=== PATIENT | male | born 1955 | race Hispanic/Latino ===

== ENCOUNTER → 2022-12-30 | Outpatient (CLI) | payer MEDICARE | END | disposition home or self-care (01) | LOC: RAH 12-29 14:14 | DX: M25.551 Pain in right hip (principal) | CPT/HCPCS: 73502 ==

== ENCOUNTER 2023-01-08 10:18 | Emergency (ER) | payer MEDICARE ==
[~2023-01-08] VITALS: Ht 172.7 cm; Wt 97.1 kg
[2023-01-08 10:22] VITALS: BP 149/70
[2023-01-08 10:52] LABS: BASOPHILS % (AUTO) 0.4 % (0.0-5.0); EOSINOPHILS % (AUTO) 5.3 % (0.0-8.0); HEMATOCRIT 39.8 % (42-54); LYMPHOCYTES % (AUTO) 12.8 % (21.0-51.0); MEAN CORPUSCULAR HGB CONC 33.9 g/dL (32.0-36.0); MEAN CORPUSCULAR VOLUME 82.4 fL (79-99); MONOCYTES % (AUTO) 6.6 % (3.0-13.0); NEUTROPHILS % (AUTO) 74.6 % (40.0-77.0); PLATELET COUNT (AUTO) 182 K/uL (130-400); RED BLOOD CELL COUNT(AUTO) 4.83 MIL/uL (4.50-6.20); WHITE BLOOD COUNT (AUTO) 9.9 K/uL (4.8-10.8)
[2023-01-08 11:09] LABS: ALBUMIN 3.9 g/dL (3.5-5.0); CREATININE 1.3 mg/dL (0.5-1.5); POTASSIUM 3.7 mmol/L (3.5-5.1)
[2023-01-08 11:55] LABS: B-TYPE NATRIURETIC PEPTIDE 36 pg/mL (0-100)
[2023-01-08] MEDS ORDERED: ACET-66 PO (12:35)
== END 2023-01-08 15:16 | disposition home or self-care (01) ==
LOC: EDH 10:18
DX: M17.0 Bilateral primary osteoarthritis of knee (principal); L30.9 Dermatitis, unspecified; I10 Essential (primary) hypertension; Z95.1 Presence of aortocoronary bypass graft; Z88.8 Allergy status to other drugs, medicaments and biological substances
CPT/HCPCS: 36415; 80053; 83880; 84484; 85025; 93005

== ENCOUNTER 2023-06-28 12:01 | Emergency (ER) | payer MEDICARE ==
[~2023-06-28] VITALS: Ht 172.7 cm; Wt 94.3 kg
[~2023-06-28 12:01] MED LIST: ACET-66 PO; AEC81 PO; AMLO10TA4 PO; ATOR40TA69 PO; BUSP15 PO; CARV12.580 PO; CHLO25TA3 PO; CLOP-31 PO; LAMO300T2 PO; LISI40TA9 PO; PALI819S IM; STAL150 PO; TAMS-1 PO
[2023-06-28 12:34] LABS: BASOPHILS # (AUTO) 0.05 K/uL (0.00-0.20); BASOPHILS % (AUTO) 0.6 % (0.0-5.0); EOSINOPHILS # (AUTO) 0.76 K/uL (0.00-0.70); EOSINOPHILS % (AUTO) 8.6 % (0.0-8.0); HEMATOCRIT 42.3 % (42-54); IMMATURE GRANULOCYTE ABSOLUTE 0.05 K/uL (0-1); LYMPHOCYTES # (AUTO) 1.3 K/uL (1.0-4.8); LYMPHOCYTES % (AUTO) 14.9 % (21.0-51.0); MEAN CORPUSCULAR HEMOGLOBIN 30.5 pg (27.0-33.0); MEAN CORPUSCULAR HGB CONC 35.5 g/dL (32.0-36.0); MEAN CORPUSCULAR VOLUME 86.2 fL (79-99); MONOCYTES # (AUTO) 0.8 K/uL (0.1-1.0); MONOCYTES % (AUTO) 8.9 % (3.0-13.0); NEUTROPHILS # (AUTO) 5.9 K/uL (1.8-7.7); NEUTROPHILS % (AUTO) 66.4 % (40.0-77.0); PLATELET COUNT (AUTO) 193 K/uL (130-400); RED BLOOD CELL COUNT(AUTO) 4.91 MIL/uL (4.50-6.20); RED CELL DISTRIBUTION WIDTH 12.5 % (11.0-15.5); WHITE BLOOD COUNT (AUTO) 8.8 K/uL (4.8-10.8)
[2023-06-28 12:43] LABS: CREATININE 1.2 mg/dL (0.5-1.5); POTASSIUM 3.5 mmol/L (3.5-5.1)
[2023-06-28 12:54] LABS: ALBUMIN 4.3 g/dL (3.5-5.0); BILIRUBIN,TOTAL 0.3 mg/dL (0.2-1.0); TOTAL PROTEIN, SERUM 7.6 g/dL (6.0-8.3)
[2023-06-28] MEDS ORDERED: NITROGLYCERIN 0.4 MG SL TAB SL PRN (13:00)
[2023-06-28] MEDS ORDERED: ASPIRIN 325MG TAB PO ONE (13:00)
[2023-06-28 13:06] LABS: B-TYPE NATRIURETIC PEPTIDE 57 pg/mL (0-100)
[2023-06-28 16:34] VITALS: BP 132/66; PULSE 66; RESP 16; O2SAT 98
== END 2023-06-28 17:21 | disposition home or self-care (01) ==
LOC: EDH 12:01
DX: I20.8 Other forms of angina pectoris (principal); I10 Essential (primary) hypertension; E11.9 Type 2 diabetes mellitus without complications; Z88.8 Allergy status to other drugs, medicaments and biological substances; Z79.899 Other long term (current) drug therapy; Z60.2 Problems related to living alone
CPT/HCPCS: 36415; 71045; 80053; 82550; 83874; 83880; 84484; 85025; 93005

== ENCOUNTER 2023-07-21 19:20 | Emergency (ER) | payer OTHER, MEDICARE ==
[~2023-07-21] VITALS: Ht 172.7 cm; Wt 95.7 kg
[2023-07-21] MEDS ORDERED: ACETAMINOPHEN 500 MG TABLET PO ONE (22:30)
[2023-07-21 23:23] LABS: HEMATOCRIT 40.7 % (42-54); MEAN CORPUSCULAR HEMOGLOBIN 30.5 pg (27.0-33.0); MEAN CORPUSCULAR HGB CONC 34.6 g/dL (32.0-36.0); MEAN CORPUSCULAR VOLUME 87.9 fL (79-99); RED BLOOD CELL COUNT(AUTO) 4.63 MIL/uL (4.50-6.20); RED CELL DISTRIBUTION WIDTH 12.6 % (11.0-15.5); WHITE BLOOD COUNT (AUTO) 10.7 K/uL (4.8-10.8)
[2023-07-21 23:36] LABS: CREATININE 1.2 mg/dL (0.5-1.5); POTASSIUM 3.6 mmol/L (3.5-5.1)
[2023-07-22 05:19] VITALS: BP 126/62; PULSE 80; RESP 18; O2SAT 100
== END 2023-07-22 05:20 | disposition home or self-care (01) ==
LOC: EDH 19:20
DX: M79.661 Pain in right lower leg (principal); R42 Dizziness and giddiness; R51.9 Headache, unspecified; H53.8 Other visual disturbances; I48.91 Unspecified atrial fibrillation; E11.9 Type 2 diabetes mellitus without complications; E78.00 Pure hypercholesterolemia, unspecified; I10 Essential (primary) hypertension; F17.200 Nicotine dependence, unspecified, uncomplicated; Z79.02 Long term (current) use of antithrombotics/antiplatelets; Z79.82 Long term (current) use of aspirin; Z79.899 Other long term (current) drug therapy; Z95.5 Presence of coronary angioplasty implant and graft
CPT/HCPCS: 36415; 80048; 82550; 85027; 85378; 93005; 93971

== ENCOUNTER 2023-09-25 14:19 | Emergency (ER) | payer MEDICARE ==
[~2023-09-25] VITALS: Ht 172.7 cm; Wt 97.5 kg
[2023-09-25 14:52] LABS: BASOPHILS # (AUTO) 0.03 K/uL (0.00-0.20); BASOPHILS % (AUTO) 0.3 % (0.0-5.0); EOSINOPHILS # (AUTO) 0.68 K/uL (0.00-0.70); EOSINOPHILS % (AUTO) 6.3 % (0.0-8.0); HEMATOCRIT 38.2 % (42-54); IMMATURE GRANULOCYTE ABSOLUTE 0.04 K/uL (0-1); LYMPHOCYTES # (AUTO) 1.6 K/uL (1.0-4.8); LYMPHOCYTES % (AUTO) 14.4 % (21.0-51.0); MEAN CORPUSCULAR HEMOGLOBIN 31.1 pg (27.0-33.0); MEAN CORPUSCULAR HGB CONC 34.3 g/dL (32.0-36.0); MEAN CORPUSCULAR VOLUME 90.7 fL (79-99); MONOCYTES # (AUTO) 1.1 K/uL (0.1-1.0); MONOCYTES % (AUTO) 10.4 % (3.0-13.0); NEUTROPHILS # (AUTO) 7.4 K/uL (1.8-7.7); NEUTROPHILS % (AUTO) 68.2 % (40.0-77.0); PLATELET COUNT (AUTO) 184 K/uL (130-400); RED BLOOD CELL COUNT(AUTO) 4.21 MIL/uL (4.50-6.20); RED CELL DISTRIBUTION WIDTH 13.1 % (11.0-15.5); WHITE BLOOD COUNT (AUTO) 10.9 K/uL (4.8-10.8)
[2023-09-25 15:04] LABS: INR 0.94 (0.85-1.15); PROTHROMBIN TIME 10.9 SEC (9.6-11.6)
[2023-09-25 15:05] LABS: CREATININE 1.2 mg/dL (0.5-1.5); PARTIAL THROMBOPLASTIN TIME 31.6 SEC (26.3-35.5); POTASSIUM 3.6 mmol/L (3.5-5.1)
[2023-09-25 15:14] LABS: ALBUMIN 3.8 g/dL (3.5-5.0); BILIRUBIN,TOTAL 0.4 mg/dL (0.2-1.0); TOTAL PROTEIN, SERUM 6.9 g/dL (6.0-8.3)
[2023-09-25 15:17] LABS: B-TYPE NATRIURETIC PEPTIDE 83 pg/mL (0-100)
[2023-09-25 15:29] VITALS: BP 142/48; PULSE 57; RESP 17; O2SAT 98
== END 2023-09-25 15:48 | disposition home or self-care (01) ==
LOC: EDH 14:19
DX: R07.89 Other chest pain (principal); E11.9 Type 2 diabetes mellitus without complications; E78.00 Pure hypercholesterolemia, unspecified; F17.200 Nicotine dependence, unspecified, uncomplicated; I10 Essential (primary) hypertension; Z79.02 Long term (current) use of antithrombotics/antiplatelets; Z79.82 Long term (current) use of aspirin; Z79.899 Other long term (current) drug therapy; Z95.1 Presence of aortocoronary bypass graft; Z95.5 Presence of coronary angioplasty implant and graft
CPT/HCPCS: 36415; 71045; 80053; 83880; 84484; 85025; 85610; 85730; 93005

== ENCOUNTER → 2023-11-14 | Outpatient (CLI) | payer MEDICARE | END | disposition home or self-care (01) | LOC: SHCH 11:17 | PROVIDERS: ATTEND Internal Medicine | DX: I10 Essential (primary) hypertension (principal) | CPT/HCPCS: 93975 ==

== ENCOUNTER 2024-04-06 18:45 | Emergency (ER) | payer MEDICARE ==
[~2024-04-06] VITALS: Ht 172.7 cm; Wt 96.6 kg
[2024-04-06 19:23] LABS: BASOPHILS # (AUTO) 0.04 K/uL (0.00-0.20); BASOPHILS % (AUTO) 0.5 % (0.0-5.0); EOSINOPHILS # (AUTO) 0.92 K/uL (0.00-0.70); EOSINOPHILS % (AUTO) 10.7 % (0.0-8.0); HEMATOCRIT 38.5 % (42-54); IMMATURE GRANULOCYTE ABSOLUTE 0.03 K/uL (0-1); LYMPHOCYTES # (AUTO) 1.5 K/uL (1.0-4.8); LYMPHOCYTES % (AUTO) 17.4 % (21.0-51.0); MEAN CORPUSCULAR HEMOGLOBIN 28.5 pg (27.0-33.0); MEAN CORPUSCULAR VOLUME 83.7 fL (79-99); MONOCYTES # (AUTO) 1.1 K/uL (0.1-1.0); MONOCYTES % (AUTO) 12.4 % (3.0-13.0); NEUTROPHILS # (AUTO) 5.1 K/uL (1.8-7.7); NEUTROPHILS % (AUTO) 58.7 % (40.0-77.0); PLATELET COUNT (AUTO) 178 K/uL (130-400); RED CELL DISTRIBUTION WIDTH 13.9 % (11.0-15.5); WHITE BLOOD COUNT (AUTO) 8.6 K/uL (4.8-10.8)
[2024-04-06 19:30] LABS: CREATININE 1.2 mg/dL (0.5-1.3); POTASSIUM 3.3 mmol/L (3.5-5.1)
[2024-04-06 20:34] VITALS: BP 115/55; PULSE 78; RESP 18; O2SAT 98
== END 2024-04-06 20:36 | disposition home or self-care (01) ==
LOC: EDH 18:45
DX: R07.89 Other chest pain (principal); E11.9 Type 2 diabetes mellitus without complications; I11.9 Hypertensive heart disease without heart failure; E78.00 Pure hypercholesterolemia, unspecified; F20.9 Schizophrenia, unspecified; F17.200 Nicotine dependence, unspecified, uncomplicated; Z79.02 Long term (current) use of antithrombotics/antiplatelets; Z79.82 Long term (current) use of aspirin; Z79.899 Other long term (current) drug therapy; Z95.1 Presence of aortocoronary bypass graft; Z88.8 Allergy status to other drugs, medicaments and biological substances
CPT/HCPCS: 36415; 71045; 80048; 84484; 85025; 93005

== ENCOUNTER 2024-06-12 09:30 | Emergency (ER) | payer MEDICARE ==
[~2024-06-12] VITALS: Ht 172.7 cm; Wt 97.5 kg
[2024-06-12 10:46] LABS: BASOPHILS # (AUTO) 0.05 K/uL (0.00-0.20); BASOPHILS % (AUTO) 0.3 % (0.0-5.0); EOSINOPHILS # (AUTO) 0.61 K/uL (0.00-0.70); EOSINOPHILS % (AUTO) 3.9 % (0.0-8.0); HEMATOCRIT 39.2 % (42-54); IMMATURE GRANULOCYTE ABSOLUTE 0.08 K/uL (0-1); LYMPHOCYTES # (AUTO) 1.1 K/uL (1.0-4.8); LYMPHOCYTES % (AUTO) 6.9 % (21.0-51.0); MEAN CORPUSCULAR HEMOGLOBIN 29.7 pg (27.0-33.0); MEAN CORPUSCULAR HGB CONC 34.2 g/dL (32.0-36.0); MEAN CORPUSCULAR VOLUME 86.9 fL (79-99); MONOCYTES # (AUTO) 1.2 K/uL (0.1-1.0); MONOCYTES % (AUTO) 7.6 % (3.0-13.0); NEUTROPHILS # (AUTO) 12.8 K/uL (1.8-7.7); NEUTROPHILS % (AUTO) 80.8 % (40.0-77.0); PLATELET COUNT (AUTO) 171 K/uL (130-400); RED BLOOD CELL COUNT(AUTO) 4.51 MIL/uL (4.50-6.20); RED CELL DISTRIBUTION WIDTH 13.7 % (11.0-15.5); WHITE BLOOD COUNT (AUTO) 15.8 K/uL (4.8-10.8)
[2024-06-12 10:53] LABS: POTASSIUM 3.7 mmol/L (3.5-5.1)
[2024-06-12 10:56] LABS: URIC ACID 8.6 mg/dL (2.6-7.2)
[2024-06-12] MEDS: KETOROLAC 60 MG VIAL (30MG/ML) IM ONE (11:55)
[2024-06-12] MEDS ORDERED: COLC0.6C3 PO (12:12)
[2024-06-12 12:20] VITALS: BP 154/60; PULSE 96; RESP 15; O2SAT 100
[2024-06-12] MEDS: dexaMETHasone SOD PHOSPHATE 10MG/ML 1ML VIAL ONE (12:28)
[2024-06-12] MEDS: dexaMETHasone SOD PHOSPHATE 4 MG/ML 1ML VIAL IV ONE (12:38)
== END 2024-06-12 12:39 | disposition home or self-care (01) ==
LOC: EDH 09:30
DX: M10.9 Gout, unspecified (principal); D72.829 Elevated white blood cell count, unspecified; I48.91 Unspecified atrial fibrillation; E11.9 Type 2 diabetes mellitus without complications; E78.00 Pure hypercholesterolemia, unspecified; F20.9 Schizophrenia, unspecified; G20.A1 Parkinson's disease without dyskinesia, without mention of fluctuations; I10 Essential (primary) hypertension; F17.200 Nicotine dependence, unspecified, uncomplicated; Z79.02 Long term (current) use of antithrombotics/antiplatelets; Z79.82 Long term (current) use of aspirin; Z79.899 Other long term (current) drug therapy; Z95.1 Presence of aortocoronary bypass graft; Z88.8 Allergy status to other drugs, medicaments and biological substances
CPT/HCPCS: 99284; 96374; 84550; 80048; 85025; 87040; 83605; 36415; 73630; 96372; J1100 ×2; J1885

== ENCOUNTER 2024-09-16 09:57 | Emergency (ER) | payer MEDICARE ==
[~2024-09-16] VITALS: Ht 172.7 cm; Wt 95.3 kg
[~2024-09-16 09:57] MED LIST changes: +APIX5TAB PO; +COLC0.6C3 PO; +EZET10TA48 PO; +PRAZ2CAP2 PO
--- NOTE | 2024-09-16 10:23 | EKG ---
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
[2024-09-16 10:42] LABS: APPEARANCE,URINE CLEAR (CLEAR); BILIRUBIN,URINE NEGATIVE (NEGATIVE); COLOR,URINE LIGHT-YELLOW (YELLOW); GLUCOSE, URINE (UA) NEGATIVE (NEGATIVE); KETONES,URINE NEGATIVE (NEGATIVE); LEUKOCYTE ESTERASE ,URINE NEGATIVE Leu/uL (NEGATIVE); NITRATE,URINE NEGATIVE (NEGATIVE); PH,URINE 6.5 (5.0-8.0); PROTEIN,URINE NEGATIVE (NEGATIVE); UROBILINOGEN,URINE 0.2 mg/dL (0.2-1.0)
[2024-09-16 10:45] LABS: ADD UA MICROSCOPIC YES
[2024-09-16 10:46] LABS: SQUAMOUS EPITHELIAL CELL,UR RARE /HPF (0-2); WBC,URINE 0-1 /HPF (0-1)
[2024-09-16 11:15] LABS: BASOPHILS # (AUTO) 0.05 K/uL (0.00-0.20); BASOPHILS % (AUTO) 0.4 % (0.0-5.0); EOSINOPHILS # (AUTO) 0.76 K/uL (0.00-0.70); EOSINOPHILS % (AUTO) 5.4 % (0.0-8.0); HEMATOCRIT 42.4 % (42-54); IMMATURE GRANULOCYTE ABSOLUTE 0.05 K/uL (0-1); LYMPHOCYTES # (AUTO) 1.1 K/uL (1.0-4.8); LYMPHOCYTES % (AUTO) 8.2 % (21.0-51.0); MEAN CORPUSCULAR HEMOGLOBIN 29.5 pg (27.0-33.0); MEAN CORPUSCULAR HGB CONC 33.7 g/dL (32.0-36.0); MEAN CORPUSCULAR VOLUME 87.6 fL (79-99); MONOCYTES % (AUTO) 7.2 % (3.0-13.0); NEUTROPHILS % (AUTO) 78.4 % (40.0-77.0); PLATELET COUNT (AUTO) 182 K/uL (130-400); RED BLOOD CELL COUNT(AUTO) 4.84 MIL/uL (4.50-6.20); RED CELL DISTRIBUTION WIDTH 12.8 % (11.0-15.5)
[2024-09-16 11:23] LABS: CREATININE 1.2 mg/dL (0.5-1.3); POTASSIUM 3.3 mmol/L (3.5-5.1)
[2024-09-16 11:27] LABS: ALBUMIN 4.2 g/dL (3.5-5.0); BILIRUBIN,DIRECT 0.1 mg/dL (0.0-0.3); BILIRUBIN,TOTAL 0.5 mg/dL (0.2-1.0); TOTAL PROTEIN, SERUM 7.5 g/dL (6.0-8.3)
[2024-09-16] MEDS ORDERED: IOHEXOL-350 75 ML VIAL IV ONE (11:33)
--- NOTE | 2024-09-16 12:21 | HMCIMG ---
CT ABDOMEN/PELVIS W/CONTRAST REASON: diffuse abd pain constipated x3 days hx of diverticulitis COMPARISON: None. TECHNIQUE: Images are obtained from lung bases to the sepsis pubis following IV contrast, 75 cc Omnipaque 350. FINDINGS: Lung bases are clear. There are no focal liver lesions. There are normal-appearing kidneys.. Spleen and pancreas appear unremarkable. There are multiple stones in the gallbladder. There is no wall thickening or edema. There is marked inflammation in the right lower quadrant. This is epicentered around the terminal ileum at the entrance to the cecum. There are some scattered diverticula in this area but none immediately in the region of the inflammation. The appendix was visualized and appears normal. Findings are consistent with an inflammatory process involving the terminal ileum. There are scattered if it tequila throughout the colon, mild in degree. There is no evidence of diverticulitis. Bowel loops appear otherwise unremarkable. The appendix was visualized and appears normal. There is no evidence of free fluid or intraperitoneal air. There are no focal fluid collections. Aorta and retroperitoneum appear normal as do pelvic soft tissue structures. The anterior abdominal wall is intact. Osseous structures appear unremarkable. IMPRESSION: 1. Moderate to marked focal inflammation surrounding the terminal ileum at its entrance to the cecum, consistent with terminal ileitis. 2. There are a few scattered diverticula in the colon but none immediately adjacent to the inflammation, the appendix is visualized and appears normal. 3. Cholelithiasis without evidence of acute cholecystitis. CT was performed with one or more following dose reduction techniques: automated exposure control, adjustment of the mA and kv according to patient's size, or use of a iterative reconstruction technique.
[2024-09-16] MEDS ORDERED: METR375C2 PO (12:48)
--- NOTE | 2024-09-16 12:49 | ERN ---
General Chief Complaint: Abdominal Pain Stated Complaint: ABDOMINAL PAIN Time Seen by MD: 10:04 Time Seen by Midlevel: 10:04 Source: patient History of Present Illness Initial Comments Patient is a 69-year-old male presenting to the ER for evaluation of periumbilical abdominal pain that started four days ago. She reports multiple small bowel movements over the last couple of days. Denies any blood in stool. Denies any other symptoms at this time. Allergies: Coded Allergies: amiodarone (Unverified Allergy, Unknown, 01/08/23) lorazepam (Unverified Allergy, Unknown, 01/08/23) Home Meds Active Scripts Metronidazole (Flagyl) 375 Mg Capsule, 1 CAP PO BID for 7 Days, #14 CAP 0 Refi lls Prov:ROB PEÑA 09/16/24 Colchicine (Colchicine) 0.6 Mg Capsule, 0.6 MG PO AD, #15 CAP One capsule by mouth every hour until pain is relieved, you reach a maximum of three capsules, or stomach upset. Prov:MEAGHAN MCGOWAN NP 06/12/24 Acetaminophen (Tylenol) 500 Mg Tab, 500 MG PO Q6HPRN PRN for PAIN LEVEL 1 TO 5 for 5 Days, #30 TAB Prov:LILIYA MORENO MD 01/08/23 Reported Medications Prazosin HCl (Prazosin HCl) 2 Mg Capsule, 1 CAP PO HS 07/26/24 Ezetimibe (Ezetimibe) 10 Mg Tablet, 1 TAB PO HS 07/26/24 Apixaban (Eliquis) 5 Mg Tablet, 1 TAB PO BID 07/26/24 Paliperidone Palmitate (Invega Trinza) 819 Mg/2.63 Ml Syringe, 819 MG IM Q3MTH, SYRINGE 02/25/23 Tamsulosin HCl (Flomax) 0.4 Mg Cap.er.24h, 0.4 MG PO DAILY, CAPSULE. 02/25/23 Lamotrigine (Lamotrigine) 300 Mg Tab.er.24, 300 MG PO DAILY 02/25/23 Carbidopa/Levodopa/Entacapone (Stalevo 150) 1 Tab Tab, 2 TAB PO DAILY, TAB 02/25/23 Atorvastatin Calcium (LIPITOR) 40 Mg Tablet, 40 MG PO HS, TAB 02/25/23 Amlodipine Besylate (Norvasc) 10 Mg Tablet, 10 MG PO DAILY, TAB 02/25/23 Lisinopril (Lisinopril) 40 Mg Tablet, 40 MG PO DAILY, TAB 02/25/23 Clopidogrel Bisulfate (Plavix) 75 Mg Tablet, 75 MG PO DAILY, TAB 02/25/23 Carvedilol (Coreg) 12.5 Mg Tablet, 12.5 MG PO BID, TAB 02/25/23 Buspirone HCl (Buspar) 15 Mg Tab, 15 MG PO BID, TAB 02/25/23 Aspirin (ASPIRIN 81 MG ECTAB) 81 Mg Ectab, 81 MG PO DAILY, TAB.EC 02/25/23 Chlorthalidone (Chlorthalidone) 25 Mg Tablet, 25 MG PO DAILY, TAB 02/25/23 Past Medical History Past Medical History: Heart Disease, Hypertension, Schizophrenia Medical History Other: parkinsons, bipolar Past Surgical History: CABG Surgical History Other: CARDAIC STENT X2, BRAIN STENT, Social History Social History: Smokers, Lives alone ROS Dictation CONSTITUTIONAL: Negative except for HPI HEAD/FACE: Negative except for HPI EENT: Negative except for HPI RESPIRATORY: Negative except for HPI GASTROINTESTINAL/ABDOMINAL: Negative except for HPI GENITOURINARY: Negative except for HPI MUSCULOSKELETAL: Negative except for HPI INTEGUMENTARY: Negative except for HPI NEUROLOGICAL/PSYCH: Negative except for HPI HEMATOLOGIC/LYMPHATIC: Negative except for HPI All Systems Negative, Except as noted above. 13 point review of systems assessed and all negative except for above. Physical Exam Physical Exam Dictation Vital Signs reviewed General Appearance: Alert, oriented x 3, no acute distress, well developed, nourished. Head and Face: non-traumatic. Eyes: PERRL, pink conjunctivas, eyelid no trauma, anterior chamber with arcus senilis. Ears: Pinnas intact and no signs of trauma or erythema ear canals clear and no discharge TM no erythema Nose: No discharge, no bleeding. Oropharynx: Mouth normal, tongue pink, pharynx clear,no erythema, tonsils no exudates, no abscesses noted, mucous membrane moist Neck: Supple, non-tender, no thyromegaly, no masses, no JVD, no bruits Breast:Deferred Chest:No tenderness, no crepitus, no paradoxical movement, no retractions Lungs:Clear, well-ventilated, symmetric, no rales, no wheezing, no rhonchi, no stridor, good breath sounds bilaterally Heart: Regular rate, regular rhythm, no murmur, no gallops Vascular: no peripheral edema, Abdomen: Soft, positive bowel sounds, nondistended, no guarding, Diffuse abdominal tenderness, no rebound, no masses no hepatomegaly, no splenomegaly, no Wolfe's sign, no hernias. Rectal: Deferred Genital: Deferred Neurological: Normal speech, motor function intact, sensory function intact Musculoskeletal: Neck nontender, full range of motion, back nontender, full range of motion, Extremities: nontender, full range of motion Skin: Color pink, dry, no turgor, no rash, no lacerations, no abrasions, no contusions. Lymphatic: Deferred Results Laboratory and Microbiology Lab and Micro Result Laboratory Tests Test 09/16/24 10:23 09/16/24 11:00 Urine Color LIGHT-YELLOW (YELLOW) Urine Appearance CLEAR (CLEAR) Urine pH 6.5 (5.0-8.0) Urine Specific [place] 1.004 (1.001-1.031) Urine Protein NEGATIVE mg/dL (NEGATIVE) Urine Glucose (UA) NEGATIVE mg/dL (NEGATIVE) Urine Ketones NEGATIVE mg/dL (NEGATIVE) Urine Occult Blood +- (TRACE) (NEGATIVE) H Urine Nitrate NEGATIVE (NEGATIVE) Urine Bilirubin NEGATIVE mg/dL (NEGATIVE) Urine Urobilinogen 0.2 mg/dL (0.2-1.0) Urine Leukocyte Esterase NEGATIVE Rafita/uL Urine RBC 2-5 /HPF (0-1) H Urine WBC 0-1 /HPF (0-1) Urine Squamous Epithelial Cells RARE /HPF (0-2) Urine Bacteria None /HPF (None Seen) White Blood Count 14.0 K/uL (4.8-10.8) H Red Blood Count 4.84 MIL/uL (4.50-6.20) Hemoglobin 14.3 g/dL (14.0-18.0) Hematocrit 42.4 % (42-54) Mean Corpuscular Volume 87.6 fL (79-99) Mean Corpuscular Hemoglobin 29.5 pg (27.0-33.0) Mean Corpuscular Hemoglobin Concent 33.7 g/dL (32.0-36.0) Red Cell Distribution Width 12.8 % (11.0-15.5) Platelet Count 182 K/uL (130-400) Mean Platelet Volume 10.1 fL (7.5-10.5) Immature Granulocyte % (Auto) 0.4 % (0-1) Neutrophils (%) (Auto) 78.4 % (40.0-77.0) H Lymphocytes (%) (Auto) 8.2 % (21.0-51.0) L Monocytes (%) (Auto) 7.2 % (3.0-13.0) Eosinophils (%) (Auto) 5.4 % (0.0-8.0) Basophils (%) (Auto) 0.4 % (0.0-5.0) Neutrophils # (Auto) 11.0 K/uL (1.8-7.7) H Lymphocytes # (Auto) 1.1 K/uL (1.0-4.8) Monocytes # (Auto) 1.0 K/uL (0.1-1.0) Eosinophils # (Auto) 0.76 K/uL (0.00-0.70) H Basophils # (Auto) 0.05 K/uL (0.00-0.20) Absolute Immature Granulocyte (auto 0.05 K/uL (0-1) Nucleated Red Blood Cells 0.0 % (0.0-0.19) White Cell Morphology Comment See comments Sodium Level 140 mmol/L (136-145) Potassium Level 3.3 mmol/L (3.5-5.1) L Chloride Level 100 mmol/L (101-111) L Carbon Dioxide Level 35 mmol/L (21-32) H Blood Urea Nitrogen 12 mg/dL (7-18) Creatinine 1.2 mg/dL (0.5-1.3) Glomerular Filtration Rate Calc 65 mL/min (>90) Random Glucose 115 mg/dL (70-105) H Total Calcium 10.2 mg/dL (8.5-10.1) H Total Bilirubin 0.5 mg/dL (0.2-1.0) Direct Bilirubin 0.1 mg/dL (0.0-0.3) Aspartate Amino Transf (AST/SGOT) 12 U/L (10-37) Alanine Aminotransferase (ALT/SGPT) 17 U/L (12-78) Alkaline Phosphatase 78 U/L (50-136) Troponin I High Sensitivity 8 ng/L (4-75) Total Protein 7.5 g/dL (6.0-8.3) Albumin 4.2 g/dL (3.5-5.0) Lipase 61 U/L (16-77) Labs Reviewed?: Yes MDM MDM: Differential diagnosis: Small-bowel obstruction, enterocolitis, gastroenteritis There are no social concerns with this patient. Prescription drug management Prescriptions will include: Flagyl Medical management and examination interpretation discussions were had by me with other qualified healthcare professionals as indicated for the patient's care. ED Course Orders Procedure Category Date Status Time Cbc With Differential LAB 09/16/24 Complete 10:09 12 Lead Ekg Tracing- EKG 09/16/24 Complete Technical 10:09 Troponin I High LAB 09/16/24 Complete Sensitivity 10:09 Urinalysis Profile LAB 09/16/24 Complete 10:09 Basic Metabolic Panel LAB 09/16/24 Complete 10:09 Lipase LAB 09/16/24 Complete 10:09 Hepatic Function Panel LAB 09/16/24 Complete 10:09 Ct Abdomen/Pelvis CT 09/16/24 Resulted W/Contrast 10:35 Iohexol (Omnipaque) PHA 09/16/24 Complete 11:33 Ceftriaxone 1g Vial PHA 09/16/24 Complete (Rocephine 1g Inj) 13:00 Current Medications Medications (Trade) Dose Ordered Sig/Edward Route PRN Reason Start Time Stop Time Status Last Admin Dose Admin Ceftriaxone Sodium (ROCEphine 1G INJ) 1 gm ONCE ONCE IVPB 09/16/24 13:00 09/16/24 13:01 DC 09/16/24 12:58 Iohexol (Omnipaque) 75 ml STK-MED ONCE IV 09/16/24 11:33 09/16/24 11:33 DC Vital Signs Date Time Temp Pulse Resp B/P (MAP) Pulse Ox O2 Delivery O2 Flow Rate FiO2 09/16/24 12:55 97.9 61 18 151/73 100 Room Air* 0 21 09/16/24 09:59 97.9 56 18 167/75 99 [address] [address] IMAGING REPORT Signed PATIENT: YONG METCALF MR#: [id number] : 1955 SEX: M AGE: 69 LOCATION: [facility] ORDER [id number] STATUS: REG ER REPORT#: [id number] SERVICE 1035 REASON: diffuse abd pain constipated x3 days hx of diverticulitis ORDERING PHYSICIAN: ROB PEÑA PROCEDURE: ABD PEL W - CT ABDOMEN/PELVIS W/CONTRAST CT ABDOMEN/PELVIS W/CONTRAST REASON: diffuse abd pain constipated x3 days hx of diverticulitis COMPARISON: None. TECHNIQUE: Images are obtained from lung bases to the sepsis pubis following IV contrast, 75 cc Omnipaque 350. FINDINGS: Lung bases are clear. There are no focal liver lesions. There are normal-appearing kidneys.. Spleen and pancreas appear unremarkable. There are multiple stones in the gallbladder. There is no wall thickening or edema. There is marked inflammation in the right lower quadrant. This is epicentered around the terminal ileum at the entrance to the cecum. There are some scattered diverticula in this area but none immediately in the region of the inflammation. The appendix was visualized and appears normal. Findings are consistent with an inflammatory process involving the terminal ileum. There are scattered if it tequila throughout the colon, mild in degree. There is no evidence of diverticulitis. Bowel loops appear otherwise unremarkable. The appendix was visualized and appears normal. There is no evidence of free fluid or intraperitoneal air. There are no focal fluid collections. Aorta and retroperitoneum appear normal as do pelvic soft tissue structures. The anterior abdominal wall is intact. Osseous structures appear unremarkable. IMPRESSION: 1. Moderate to marked focal inflammation surrounding the terminal ileum at its entrance to the cecum, consistent with terminal ileitis. 2. There are a few scattered diverticula in the colon but none immediately adjacent to the inflammation, the appendix is visualized and appears normal. 3. Cholelithiasis without evidence of acute cholecystitis. CT was performed with one or more following dose reduction techniques: automated exposure control, adjustment of the mA and kv according to patient's size, or use of a iterative reconstruction technique. DICTATED BY: SIVA CARTAGENA MD DATE: 09/16/241213 ELECTRONICALLY SIGNED BY: SIVA CARTAGENA MD DATE: 09/16/24 1221 DX & DISP Disposition: Discharge Departure Impression: Primary Impression: Terminal ileitis without complication Condition: Stable Scripts Metronidazole (Flagyl) 375 Mg Capsule 1 CAP PO BID for 7 Days, #14 CAP 0 Refills Prov: ROB PEÑA 09/16/24 Additional Instructions: Your blood work today is stable. Your CT scan of the abdomen and pelvis with contrast reveals terminal ileitis. You were given IV antibiotics in the emergency department. Have given you a prescription for Flagyl for outpatient management. Please follow up with the primary care doctor next Thursday for repeat evaluation. If you develop any rectal bleeding, severe abdominal pain, fever, or worsening symptoms please report to the ER for further evaluation. Return to the ER for any new or worsening symptoms Referrals: EFFIE STRONG MD (PCP) Time of Disposition: 12:47 I have reviewed the case, and I agree with, Diagnosis and Plan I performed the substantive portion of the visit. I have reviewed and personally made and approve the management plan that is documented in the note by myself or the MARTINEZ. I acknowledge for responsibility for the patient's management plan. ROB PEÑA Sep 16, 2024 12:49
[2024-09-16 12:55] VITALS: BP 151/73; PULSE 61; RESP 18; TEMP 97.9; O2SAT 100
[2024-09-16] MEDS: cefTRIAXone 1G VIAL IVPB ONE (12:58)
== END 2024-09-16 13:37 | disposition home or self-care (01) ==
LOC: EDH 09:57
DX: K50.00 Crohn's disease of small intestine without complications (principal); K57.30 Diverticulosis of large intestine without perforation or abscess without bleeding; K80.20 Calculus of gallbladder without cholecystitis without obstruction; G20.A1 Parkinson's disease without dyskinesia, without mention of fluctuations; F20.9 Schizophrenia, unspecified; F17.200 Nicotine dependence, unspecified, uncomplicated; I10 Essential (primary) hypertension; Z79.01 Long term (current) use of anticoagulants; Z79.02 Long term (current) use of antithrombotics/antiplatelets; Z79.82 Long term (current) use of aspirin; Z79.899 Other long term (current) drug therapy; Z95.1 Presence of aortocoronary bypass graft
CPT/HCPCS: 99285; 74177; 96374; 80076; 84484; 80048; 83690; 85025; 81001; 36415; 93005; J0696; Q9967

== ENCOUNTER 2024-10-28 10:37 | Emergency (ER) | payer MEDICARE ==
[~2024-10-28] VITALS: Ht 172.7 cm; Wt 99.8 kg
[~2024-10-28 10:37] MED LIST changes: +METR375C2 PO
[2024-10-28 11:58] LABS: BASOPHILS # (AUTO) 0.07 K/uL (0.00-0.20); BASOPHILS % (AUTO) 0.6 % (0.0-5.0); EOSINOPHILS # (AUTO) 0.88 K/uL (0.00-0.70); EOSINOPHILS % (AUTO) 7.9 % (0.0-8.0); HEMATOCRIT 41.3 % (42-54); IMMATURE GRANULOCYTE ABSOLUTE 0.05 K/uL (0-1); LYMPHOCYTES # (AUTO) 1.3 K/uL (1.0-4.8); LYMPHOCYTES % (AUTO) 11.8 % (21.0-51.0); MEAN CORPUSCULAR HEMOGLOBIN 29.8 pg (27.0-33.0); MEAN CORPUSCULAR HGB CONC 33.2 g/dL (32.0-36.0); MEAN CORPUSCULAR VOLUME 89.8 fL (79-99); MONOCYTES # (AUTO) 0.9 K/uL (0.1-1.0); MONOCYTES % (AUTO) 8.4 % (3.0-13.0); NEUTROPHILS # (AUTO) 7.9 K/uL (1.8-7.7); NEUTROPHILS % (AUTO) 70.8 % (40.0-77.0); PLATELET COUNT (AUTO) 187 K/uL (130-400); RED CELL DISTRIBUTION WIDTH 13.6 % (11.0-15.5); WHITE BLOOD COUNT (AUTO) 11.1 K/uL (4.8-10.8)
--- NOTE | 2024-10-28 11:59 | HMCIMG ---
CHEST 1VW HISTORY: Chest pain COMPARISON: 07/26/2024 FINDINGS: A frontal projection of the chest was obtained. No acute pulmonary infiltrates is seen. Poststernotomy changes are seen. The heart is enlarged. Degenerative changes of the thoracolumbar spine are present. Prominent interstitial markings are seen. No evidence of aortic calcification is seen. IMPRESSION: 1. No acute pulmonary infiltrate is seen.
[2024-10-28 12:14] LABS: INR 1.02 (0.85-1.15); PROTHROMBIN TIME 11.4 SEC (9.6-11.6)
--- NOTE | 2024-10-28 12:20 | EKG ---
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 : 1955 Requested By: LILIYA MORENO Order Number: [id number] Reading MD: Clemente Melo Measurements Intervals [place] Rate: 54 P: 195 [place]: 70 QRS: 100 QRSD: 127 T: 5 QT: 455 QTc: 414 Interpretive Statements Sinus rhythm Ventricular premature complex Nonspecific intraventricular conduction delay Probable inferior infarct, age indeterminate Compared to ECG 09/16/2024 10:15:54 Ventricular premature complex(es) now present Myocardial infarct finding now present Electronically Signed On 10-31-2024 21:26:08 [employer] TER[employer]AL PLANT OPERATOR by Clemente Melo Please click the below link to view image of tracing.
[2024-10-28 12:21] LABS: B-TYPE NATRIURETIC PEPTIDE 27 pg/mL (0-100)
[2024-10-28 12:34] LABS: CREATININE 1.2 mg/dL (0.5-1.3); POTASSIUM 3.9 mmol/L (3.5-5.1)
--- NOTE | 2024-10-28 13:30 | ERN ---
General Chief Complaint: Headache Stated Complaint: HEADACHE Time Seen by MD: 10:40 Source: patient History of Present Illness Initial Comments PATIENT IS A 69-YEAR-OLD MALE COMING IN TO BE EVALUATED FOR HEADACHE. PATIENT STATES THAT THE HEADACHE IS ON THE LEFT SIDE OF THE HEAD RADIATING DOWN THE LEFT NECK REGION. HE STATES THAT THE PAIN HAS BEEN THERE FOR A COUPLE OF DAYS AND HAS BEEN PROGRESSIVELY GETTING WORSE. Allergies: Coded Allergies: amiodarone (Unverified Allergy, Unknown, 01/08/23) lorazepam (Unverified Allergy, Unknown, 01/08/23) Home Meds Active Scripts Metronidazole (Flagyl) 375 Mg Capsule, 1 CAP PO BID for 7 Days, #14 CAP 0 Refills Prov:ROB PEÑA 09/16/24 Colchicine (Colchicine) 0.6 Mg Capsule, 0.6 MG PO AD, #15 CAP One capsule by mouth every hour until pain is relieved, you reach a maximum of three capsules, or stomach upset. Prov:MEAGHAN MCGOWAN NP 06/12/24 Acetaminophen (Tylenol) 500 Mg Tab, 500 MG PO Q6HPRN PRN for PAIN LEVEL 1 TO 5 for 5 Days, #30 TAB Prov:LILIYA MORENO MD 01/08/23 Reported Medications Prazosin HCl (Prazosin HCl) 2 Mg Capsule, 1 CAP PO HS 07/26/24 Ezetimibe (Ezetimibe) 10 Mg Tablet, 1 TAB PO HS 07/26/24 Apixaban (Eliquis) 5 Mg Tablet, 1 TAB PO BID 07/26/24 Paliperidone Palmitate (Invega Trinza) 819 Mg/2.63 Ml Syringe, 819 MG IM Q3MTH, SYRINGE 02/25/23 Tamsulosin HCl (Flomax) 0.4 Mg Cap.er.24h, 0.4 MG PO DAILY, CAPSULE.DR 02/25/23 Lamotrigine (Lamotrigine) 300 Mg Tab.er.24, 300 MG PO DAILY 02/25/23 Carbidopa/Levodopa/Entacapone (Stalevo 150) 1 Tab Tab, 2 TAB PO DAILY, TAB 02/25/23 Atorvastatin Calcium (LIPITOR) 40 Mg Tablet, 40 MG PO HS, TAB 02/25/23 Amlodipine Besylate (Norvasc) 10 Mg Tablet, 10 MG PO DAILY, TAB 02/25/23 Lisinopril (Lisinopril) 40 Mg Tablet, 40 MG PO DAILY, TAB 02/25/23 Clopidogrel Bisulfate (Plavix) 75 Mg Tablet, 75 MG PO DAILY, TAB 02/25/23 Carvedilol (Coreg) 12.5 Mg Tablet, 12.5 MG PO BID, TAB 02/25/23 Buspirone HCl (Buspar) 15 Mg Tab, 15 MG PO BID, TAB 02/25/23 Aspirin (ASPIRIN 81 MG ECTAB) 81 Mg Ectab, 81 MG PO DAILY, TAB.EC 02/25/23 Chlorthalidone (Chlorthalidone) 25 Mg Tablet, 25 MG PO DAILY, TAB 02/25/23 Past Medical History Past Medical History: Heart Disease, Hypertension, Schizophrenia Medical History Other: parkinsons, bipolar Past Surgical History: CABG Surgical History Other: CARDAIC STENT X2, BRAIN STENT, Social History Social History: Smokers, Lives alone ROS Dictation CONSTITUTIONAL: NO CHILLS, NO FEVER, NO WEAKNESS, NO DIAPHORESIS, NO MALAISE. HEAD/FACE: NO SIGNS OF TRAUMA. EENT: NO EYE PAIN, NO BLURRED VISION, NO TEARING, NO DOUBLE VISION, NO EAR PAIN, NO EAR DISCHARGE, NO NOSE PAIN, NO NASAL CONGESTION, NO THROAT PAIN, NO THROAT SWELLING, NO MOUTH PAIN. RESPIRATORY: NO COUGH, NO ORTHOPNEA, NO SOB, NO STRIDOR, NO WHEEZING. CARDIOVASCULAR: NO CHEST PAIN, NO EDEMA, NO PALPITATIONS, NO SYNCOPE. GASTROINTESTINAL/ABDOMINAL: NO ABDOMINAL PAIN, NO CONSTIPATION, NO DIARRHEA, NO NAUSEA, NO VOMITING. GENITOURINARY: NO ABNORMAL DISCHARGE, NO DYSURIA, NO FREQUENT URINATION, NO HEMATURIA. NO COMPLAINTS OF PAIN IN THE GENITALS. MUSCULOSKELETAL: NO BACK PAIN, NO GOUT, NO JOINT PAIN, NO JOINT SWELLING, NO MUSCLE PAIN, NO MUSCLE STIFFNESS, NO NECK PAIN. INTEGUMENTARY: NO CHANGE IN COLOR, NO CHANGE IN HAIR/NAILS, NO DRYNESS, NO LESION, NO LUMPS, NO RASH. NEUROLOGICAL/PSYCH: NO ANXIETY, NOT DEPRESSED, NO EMOTIONAL PROBLEM, NO HEADACHE, NO NUMBNESS, NO PRE-EXISTING DEFICIT, NO HISTORY OF SEIZURES, NO TREMORS, NO WEAKNESS. HEMATOLOGIC/LYMPHATIC: NOT ANEMIC, NO HISTORY OF BLOOD CLOTS, NO APPARENT BLEEDING, NO BRUISING, GLANDS NOT SWOLLEN. ALL SYSTEMS NEGATIVE, EXCEPT NOTED. Physical Exam Physical Exam Dictation VITAL SIGNS: REVIEWED. GENERAL APPEARANCE: ALERT, ORIENTED X3, NO ACUTE DISTRESS, OBESE. HEAD AND FACE: NON-TRAUMATIC. EYES: PERRL, PINK CONJUNCTIVAS, EYELID NO TRAUMA, ANTERIOR CHAMBER CLEAR. EARS: PINNAS INTACT AND NO SIGNS OF TRAUMA OR ERYTHEMA. EAR CANALS CLEAR AND NO DISCHARGE. TMS NO ERYTHEMA. NOSE: NO DISCHARGE, NO BLEEDING. OROPHARYNX: MOUTH NORMAL, TEETH NO CARIES, TONGUE PINK. PHARYNX CLEAR, NO ERYTHEMA. TONSILS NO EXUDATES, NO ABSCESSES NOTED. MUCOUS MEMBRANE MOIST. NECK: SUPPLE, NON-TENDER, NO THYROMEGALY, NO MASSES, NO JVD, NO BRUITS. BREAST: DEFERRED. CHEST: NO TENDERNESS, NO CREPITUS, NO PARADOXICAL MOVEMENT, NO RETRACTIONS. LUNGS: CLEAR, WELL-VENTILATED, SYMMETRIC, NO RALES, NO WHEEZING, NO RHONCHI, NO STRIDOR, GOOD BREATH SOUNDS BILATERALLY. HEART: REGULAR RATE, REGULAR RHYTHM, NO MURMUR, NO GALLOPS. VASCULAR: NO PERIPHERAL EDEMA. ABDOMEN: SOFT, POSITIVE BOWEL SOUNDS, NONDISTENDED, NO GUARDING, NONTENDER, NO REBOUND, NO MASSES NO HEPATOMEGALY, NO SPLENOMEGALY, NO TRUONG'S SIGN, NO HERNIAS. RECTAL: DEFERRED. GENITAL: DEFERRED. NEUROLOGICAL: NORMAL SPEECH, GROSS MOTOR FUNCTION INTACT, GROSS SENSORY FUNCTION INTACT. MUSCULOSKELETAL: NECK NONTENDER, FULL RANGE OF MOTION, BACK NONTENDER, FULL RANGE OF MOTION. EXTREMITIES: NONTENDER, FULL RANGE OF MOTION. SKIN: COLOR PINK, DRY, NO TURGOR, NO RASH, NO LACERATIONS, NO ABRASIONS, NO CONTUSIONS. LYMPHATICS: DEFERRED. Results Laboratory and Microbiology Lab and Micro Result Laboratory Tests Test 10/28/24 11:48 White Blood Count 11.1 K/uL (4.8-10.8) H Red Blood Count 4.60 MIL/uL (4.50-6.20) Hemoglobin 13.7 g/dL (14.0-18.0) L Hematocrit 41.3 % (42-54) L Mean Corpuscular Volume 89.8 fL (79-99) Mean Corpuscular Hemoglobin 29.8 pg (27.0-33.0) Mean Corpuscular Hemoglobin Concent 33.2 g/dL (32.0-36.0) Red Cell Distribution Width 13.6 % (11.0-15.5) Platelet Count 187 K/uL (130-400) Mean Platelet Volume 9.4 fL (7.5-10.5) Immature Granulocyte % (Auto) 0.5 % (0-1) Neutrophils (%) (Auto) 70.8 % (40.0-77.0) Lymphocytes (%) (Auto) 11.8 % (21.0-51.0) L Monocytes (%) (Auto) 8.4 % (3.0-13.0) Eosinophils (%) (Auto) 7.9 % (0.0-8.0) Basophils (%) (Auto) 0.6 % (0.0-5.0) Neutrophils # (Auto) 7.9 K/uL (1.8-7.7) H Lymphocytes # (Auto) 1.3 K/uL (1.0-4.8) Monocytes # (Auto) 0.9 K/uL (0.1-1.0) Eosinophils # (Auto) 0.88 K/uL (0.00-0.70) H Basophils # (Auto) 0.07 K/uL (0.00-0.20) Absolute Immature Granulocyte (auto 0.05 K/uL (0-1) Nucleated Red Blood Cells 0.0 % (0.0-0.19) Prothrombin Time 11.4 SEC (9.6-11.6) Prothromb Time International Ratio 1.02 (0.85-1.15) Sodium Level 144 mmol/L (136-145) Potassium Level 3.9 mmol/L (3.5-5.1) Chloride Level 104 mmol/L (101-111) Carbon Dioxide Level 33 mmol/L (21-32) H Blood Urea Nitrogen 19 mg/dL (7-18) H Creatinine 1.2 mg/dL (0.5-1.3) Glomerular Filtration Rate Calc 65 mL/min (>90) Random Glucose 114 mg/dL (70-105) H Total Calcium 10.7 mg/dL (8.5-10.1) H Total Creatine Kinase 51 U/L (21-232) # Troponin I High Sensitivity 7 ng/L (4-75) B-Type Natriuretic Peptide 27 pg/mL (0-100) Labs Reviewed?: Yes EKG/XRAY/US/CT/MRI EKG Comment 10/28/2024 TIME 12:15 P.M. VENTRICULAR RATE 54 SINUS RHYTHM MI [address] WAVE ELEVATION OR DEPRESSION CT Scan Comment [facility] [address] [place] [address] IMAGING REPORT Signed PATIENT: YONG METCALF MR#: [id number] : 1955 SEX: M AGE: 69 LOCATION: [facility] ORDER 43 STATUS: REG ER REPORT#: [id number] SERVICE 43 REASON: headache ORDERING PHYSICIAN: LILIYA MORENO MD PROCEDURE: CTA [facility] - CT ANGIO HEAD AND NECK CT ANGIO HEAD AND NECK HISTORY: Headaches COMPARISON: None TECHNIQUE: CT angiography of the head was performed. The study was performed using angiographic technique with maximum intensity projection reconstruction images. Patient was given 100 cc of Omnipaque through intravenous route. FINDINGS: The ventricles and extraventricular CSF spaces are nondilated for patient's age. There is no midline shift, mass effect or herniation. No acute intracranial bleed is seen. Visualized portion of the paranasal sinuses are grossly within normal limits. No CT evidence of cerebral aneurysm or abnormal arteriovenous communication is seen. Diffuse atherosclerosis changes are present. There is hypoplastic left A1 segment. Nasoseptal deviation towards right is seen. Vertebrobasilar arterial system is grossly within normal limits. IMPRESSION: CTA Head 1. Atherosclerotic disease. Otherwise unremarkable CTA of the brain. TECHNIQUE: CT angiography of the neck was performed. The study was performed using angiographic technique with maximum intensity projection reconstruction images. FINDINGS: There are degenerative changes of the cervical spine. Parapharyngeal fat planes are preserved bilaterally. The airway is patent. Normal enhancement of the thyroid gland is noted. Visualized portion of the lung apices are unremarkable. Coronary arterial calcifications are seen. Poststernotomy changes are seen. The common, internal and external carotid arteries are visualized. Less than 40% stenosis is seen of the internal coronary arteries. Both vertebral arteries are seen with antegrade flow. IMPRESSION: CTA Neck 1. Atherosclerotic disease. Less than 40% stenosis is seen of the internal carotid arteries bilaterally.. CT was performed with one or more following dose reduction techniques: automated exposure control, adjustment of the mA and kv according to patient's size, or use of a iterative reconstruction technique. DICTATED BY: JOSE CARLOS MOLINA MD DATE: 10/28/24 152 ELECTRONICALLY SIGNED BY: JOSE CARLOS MOLINA MD DATE: 10/28/24 1532 [facility] MDM: DIFFERENTIAL DIAGNOSIS: TENSION HEADACHE, MUSCLE STRAIN, PATIENT IS A 69-YEAR-OLD GENTLEMAN COMING IN TO BE EVALUATED FOR LEFT-SIDED HEADACHE RADIATING DOWN TO LEFT NECK. PATIENT STATES THAT HE WAS CONCERNED BUT HE GETS DOES HAS A HISTORY OF ANEURYSMS IN HIS FAMILY. CT ANGIO OF THE HEAD DID NOT DISCLOSE ACUTE FINDINGS. BASED ON PHYSICAL FINDINGS PATIENT WILL BE DISCHARGED WITH A DIAGNOSIS OF TENSION HEADACHES. ED Course Orders Procedure Category Date Status Time Cbc With Differential LAB 10/28/24 Complete 11:04 Prothrombin Time With LAB 10/28/24 Complete INR 11:04 B-Type Natriuretic LAB 10/28/24 Complete Peptide 11:04 Chest 1vw RAD 10/28/24 Resulted 11:04 12 Lead Ekg Tracing- EKG 10/28/24 Complete Technical 11:04 Creatine Kinase, Total LAB 10/28/24 Complete 11:04 Troponin I High LAB 10/28/24 Complete Sensitivity 11:04 Basic Metabolic Panel LAB 10/28/24 Complete 11:04 Acetaminophen 500mg PHA 10/28/24 Complete Tab (Tylenol 500mg T 11:30 Ct Angio Head And Neck CT 10/28/24 Resulted 12:44 Iohexol (Omnipaque) PHA 10/28/24 Complete 14:30 Current Medications Medications (Trade) Dose Ordered Sig/Edward Route PRN Reason Start Time Stop Time Status Last Admin Dose Admin Acetaminophen (TYLenol 500MG TAB) 1,000 mg ONCE ONCE PO 10/28/24 11:30 10/28/24 11:31 DC 10/28/24 14:23 Iohexol (Omnipaque) 35,000 mg STK-MED ONCE IV 10/28/24 14:30 10/28/24 14:30 DC Vital Signs Date Time Temp Pulse Resp B/P (MAP) Pulse Ox O2 Delivery O2 Flow Rate FiO2 10/28/24 11:12 98.6 80 16 148/64 98 Room Air 0 10/28/24 11:12 98.6 80 16 148/64 98 Room Air* 0 21 DX & DISP Disposition: Discharge Departure Impression: Primary Impression: Tension headache Additional Impression: Dehydration Condition: Stable Scripts Diclofenac Sodium (Voltaren Arthritis Pain) 1 % Gel..gram. 4 GM TP BID for 7 Days, #1 TUBE Prov: LILIYA MORENO MD 10/28/24 Additional Instructions: FOLLOW-UP WITH PRIMARY CARE PROVIDER IN 1 TO 2 DAYS. TAKE MEDICATIONS DIR ECTED HERE IN THE EMERGENCY ROOM. OKAY TO CONTINUE HOME MEDICATIONS UNLESS OTHERWISE DISCUSSED DURING YOUR VISIT IN THE EMERGENCY ROOM TODAY. RETURN TO YOUR NEAREST EMERGENCY ROOM IF SYMPTOMS WORSEN OR IF THERE IS NO IMPROVEMENT. CALL 911 IF YOU NEED IMMEDIATE ASSISTANCE. TAKE TYLENOL [id number] NEEDED AND IF NO CONTRAINDICATIONS ARE PRESENT. INCREASE ORAL HYDRATION. A WOUND CULTURE OR URINE CULTURE WAS ORDERED HERE IN THE EMERGENCY ROOM DEPARTMENT PLEASE FOLLOW-UP WITH PRIMARY CARE PROVIDER AND ADVISE THEM TO GET REPEAT PORTS FROM OUR FACILITY. IF YOU HAD ANY SHANNAN WRAP/SPLINTS THAT WERE APPLIED HERE, PLEASE DO NOT REMOVE THEM UNTIL YOU SEE YOUR PRIMARY CARE OR SPECIALTY. REFERRALS: Referrals: DEBO TRAORE MD (PCP) Time of Disposition: 16:31 LILIYA MORENO MD Oct 28, 2024 13:29
[2024-10-28] MEDS: acetaMINOPHEN 500 MG TABLET PO ONE (14:23)
[2024-10-28] MEDS ORDERED: IOHEXOL 350 MG/ML 100ML INFUS..BTL IV ONE (14:30)
--- NOTE | 2024-10-28 15:32 | HMCIMG ---
CT ANGIO HEAD AND NECK HISTORY: Headaches COMPARISON: None TECHNIQUE: CT angiography of the head was performed. The study was performed using angiographic technique with maximum intensity projection reconstruction images. Patient was given 100 cc of Omnipaque through intravenous route. FINDINGS: The ventricles and extraventricular CSF spaces are nondilated for patient's age. There is no midline shift, mass effect or herniation. No acute intracranial bleed is seen. Visualized portion of the paranasal sinuses are grossly within normal limits. No CT evidence of cerebral aneurysm or abnormal arteriovenous communication is seen. Diffuse atherosclerosis changes are present. There is hypoplastic left A1 segment. Nasoseptal deviation towards right is seen. Vertebrobasilar arterial system is grossly within normal limits. IMPRESSION: CTA Head 1. Atherosclerotic disease. Otherwise unremarkable CTA of the brain. TECHNIQUE: CT angiography of the neck was performed. The study was performed using angiographic technique with maximum intensity projection reconstruction images. FINDINGS: There are degenerative changes of the cervical spine. Parapharyngeal fat planes are preserved bilaterally. The airway is patent. Normal enhancement of the thyroid gland is noted. Visualized portion of the lung apices are unremarkable. Coronary arterial calcifications are seen. Poststernotomy changes are seen. The common, internal and external carotid arteries are visualized. Less than 40% stenosis is seen of the internal coronary arteries. Both vertebral arteries are seen with antegrade flow. IMPRESSION: CTA Neck 1. Atherosclerotic disease. Less than 40% stenosis is seen of the internal carotid arteries bilaterally.. CT was performed with one or more following dose reduction techniques: automated exposure control, adjustment of the mA and kv according to patient's size, or use of a iterative reconstruction technique.
[2024-10-28] MEDS ORDERED: DICL20GE TP (16:33)
[2024-10-28] MEDS: 0.9%NACL 1000ML 1,000 ML IV ONE (17:26)
[2024-10-28 17:57] VITALS: BP 147/75; PULSE 78; RESP 16; TEMP 97.9; O2SAT 100
== END 2024-10-28 17:59 | disposition home or self-care (01) ==
LOC: EDH 10:37
DX: G44.209 Tension-type headache, unspecified, not intractable (principal); E86.0 Dehydration; F17.200 Nicotine dependence, unspecified, uncomplicated; F20.9 Schizophrenia, unspecified; G20.A1 Parkinson's disease without dyskinesia, without mention of fluctuations; I10 Essential (primary) hypertension; M19.90 Unspecified osteoarthritis, unspecified site; Z79.01 Long term (current) use of anticoagulants; Z79.02 Long term (current) use of antithrombotics/antiplatelets; Z79.82 Long term (current) use of aspirin; Z79.899 Other long term (current) drug therapy; Z95.1 Presence of aortocoronary bypass graft
CPT/HCPCS: 99285; 70496; 96360; 71045; 82550; 84484; 80048; 83880; 85025; 85610; 36415; 70498; 93005; J7030; Q9967

== ENCOUNTER → 2025-03-10 | Emergency (ER) | payer MEDICARE, MEDICAID ==
[~2025-03-10] VITALS: Ht 172.7 cm; Wt 95.4 kg
[~2025-03-10] MED LIST changes: +AMLO-915 PO; -AMLO10TA4 PO; +DICL20GE TP; -TAMS-1 PO; +TAMS-55 PO
--- NOTE | 2025-03-10 20:10 | ERN ---
ED Note History of Present Illness Stated Complaint: NUMBNESS AND TINGLING TO LEG AND ARM Chief Complaint: Numbness Time Seen by MD: 19:57 Dictation: PATIENT IS A 70-YEAR-OLD MALE COMING IN TODAY WITH COMPLAINTS OF NUMBNESS TINGLING TO HIS LEFT UPPER EXTREMITY AND LEFT LOWER EXTREMITY FROM ANKLE TO KNEE AND FROM WRIST TO ELBOW ONSET 10:00 THIS MORNING. HE CURRENTLY IS NEUROLOGICALLY INTACT SPEECH IS CLEAR AND NIH IS 0. HE STATES HE HAS HAD TWO PRIOR SMALL STROKES AND ONE TIA. Allergies: Coded Allergies: amiodarone (Unverified Allergy, Unknown, 01/08/23) lorazepam (Unverified Allergy, Unknown, 01/08/23) Home Meds Active Scripts Diclofenac Sodium (Voltaren Arthritis Pain) 1 % Gel..gram., 4 GM TP BID for 7 Days, #1 TUBE Prov:LILIYA MORENO MD 10/28/24 Metronidazole (Flagyl) 375 Mg Capsule, 1 CAP PO BID for 7 Days, #14 CAP 0 Refills Prov:ROB PEÑA 09/16/24 Colchicine (Colchicine) 0.6 Mg Capsule, 0.6 MG PO AD, #15 CAP One capsule by mouth every hour until pain is relieved, you reach a maximum of three capsules, or stomach upset. Prov:MEAGHAN MCGOWAN NP 06/12/24 Acetaminophen (Tylenol) 500 Mg Tab, 500 MG PO Q6HPRN PRN for PAIN LEVEL 1 TO 5 for 5 Days, #30 TAB Prov:LILIYA MORENO MD 01/08/23 Reported Medications Prazosin HCl (Prazosin HCl) 2 Mg Capsule, 1 CAP PO HS 07/26/24 Ezetimibe (Ezetimibe) 10 Mg Tablet, 1 TAB PO HS 07/26/24 Apixaban (Eliquis) 5 Mg Tablet, 1 TAB PO BID 07/26/24 Paliperidone Palmitate (Invega Trinza) 819 Mg/2.63 Ml Syringe, 819 MG IM Q3MTH, SYRINGE 02/25/23 Tamsulosin HCl (Flomax) 0.4 Mg Cap.er.24h, 0.4 MG PO DAILY, CAPSULE. 02/25/23 Lamotrigine (Lamotrigine) 300 Mg Tab.er.24, 300 MG PO DAILY 02/25/23 Carbidopa/Levodopa/Entacapone (Stalevo 150) 1 Tab Tab, 2 TAB PO DAILY, TAB 02/25/23 Atorvastatin Calcium (LIPITOR) 40 Mg Tablet, 40 MG PO HS, TAB 02/25/23 Amlodipine Besylate (Norvasc) 10 Mg Tablet, 10 MG PO DAILY, TAB 02/25/23 Lisinopril (Lisinopril) 40 Mg Tablet, 40 MG PO DAILY, TAB 02/25/23 Clopidogrel Bisulfate (Plavix) 75 Mg Tablet, 75 MG PO DAILY, TAB 02/25/23 Carvedilol (Coreg) 12.5 Mg Tablet, 12.5 MG PO BID, TAB 02/25/23 Buspirone HCl (Buspar) 15 Mg Tab, 15 MG PO BID, TAB 02/25/23 Aspirin (ASPIRIN 81 MG ECTAB) 81 Mg Ectab, 81 MG PO DAILY, TAB.EC 02/25/23 Chlorthalidone (Chlorthalidone) 25 Mg Tablet, 25 MG PO DAILY, TAB 02/25/23 Past Medical History Past Medical History: Diverticulosis, High Cholesterol, Hypertension, TIA Additional Past Medical Hx: parkinsons, bipolar Surgical History: None Surgical History Other: CARDAIC STENT X2, BRAIN STENT, Social History: Smokers, Lives alone RN Note Reviewed/Agreed w/PFSH: Yes Review of System Dictation CONSTITUTIONAL: NEGATIVE EXCEPT FOR HPI HEAD/FACE: NEGATIVE EXCEPT FOR HPI EENT: NEGATIVE EXCEPT FOR HPI RESPIRATORY: NEGATIVE EXCEPT FOR HPI GASTROINTESTINAL/ABDOMINAL: NEGATIVE EXCEPT FOR HPI GENITOURINARY: NEGATIVE EXCEPT FOR HPI MUSCULOSKELETAL: NEGATIVE EXCEPT FOR HPI INTEGUMENTARY: NEGATIVE EXCEPT FOR HPI NEUROLOGICAL/PSYCH: NEGATIVE EXCEPT FOR HPI NUMBNESS TINGLING TO LEFT FOREARM AND LEFT LOWER LEG TO KNEE HEMATOLOGIC/LYMPHATIC: NEGATIVE EXCEPT FOR HPI ALL SYSTEMS NEGATIVE, EXCEPT NOTED ABOVE. 13 POINT REVIEW OF SYSTEMS ASSESSED AND ALL NEGATIVE EXCEPT FOR ABOVE. Initial Vital Sign VS Vital Signs Date Time Temp Pulse Resp B/P (MAP) Pulse Ox O2 Delivery O2 Flow Rate FiO2 03/10/25 19:52 98.4 55 19 153/81 98 Room Air 03/10/25 21:05 0 21 Physical Exam Dictation VITAL SIGNS REVIEWED GENERAL APPEARANCE: ALERT, ORIENTED X 3, NO ACUTE DISTRESS, WELL DEVELOPED, NOURISHED. 0/10 PAIN HEAD AND FACE: NON-TRAUMATIC. EYES: PERRL, PINK CONJUNCTIVAS, EYELID NO TRAUMA, ANTERIOR CHAMBER WITH ARCUS SENILIS. EARS: PINNAS INTACT AND NO SIGNS OF TRAUMA OR ERYTHEMA EAR CANALS CLEAR AND NO DISCHARGE TM NO ERYTHEMA NOSE: NO DISCHARGE, NO BLEEDING. OROPHARYNX: MOUTH NORMAL, TONGUE PINK, PHARYNX CLEAR,NO ERYTHEMA, TONSILS NO EXUDATES, NO ABSCESSES NOTED, MUCOUS MEMBRANE MOIST NECK: SUPPLE, NON-TENDER, NO THYROMEGALY, NO MASSES, NO JVD, NO BRUITS BREAST:DEFERRED CHEST:NO TENDERNESS, NO CREPITUS, NO PARADOXICAL MOVEMENT, NO RETRACTIONS LUNGS:CLEAR, WELL-VENTILATED, SYMMETRIC, NO RALES, NO WHEEZING, NO RHONCHI, NO STRIDOR, GOOD BREATH SOUNDS BILATERALLY HEART: REGULAR RATE, REGULAR RHYTHM, NO MURMUR, NO GALLOPS VASCULAR: NO PERIPHERAL EDEMA, ABDOMEN: SOFT, POSITIVE BOWEL SOUNDS, NONDISTENDED, NO GUARDING, NONTENDER, NO REBOUND, NO MASSES NO HEPATOMEGALY, NO SPLENOMEGALY, NO TRUONG'S SIGN, NO HERNIAS. RECTAL: DEFERRED GENITAL: DEFERRED NEUROLOGICAL: NORMAL SPEECH, MOTOR FUNCTION INTACT, SENSORY FUNCTION INTACT NIH IS 0 PATIENT INTACT NEUROLOGICALLY MUSCULOSKELETAL: NECK NONTENDER, FULL RANGE OF MOTION, BACK NONTENDER, FULL RANGE OF MOTION, EXTREMITIES: NONTENDER, FULL RANGE OF MOTION SKIN: COLOR PINK, DRY, NO TURGOR, NO RASH, NO LACERATIONS, NO ABRASIONS, NO CONTUSIONS. LYMPHATIC: DEFERRED Results (Laboratory/Radiology) Laboratory/Radiology Laboratory Tests Test 03/10/25 20:20 White Blood Count 9.4 K/uL (4.8-10.8) Red Blood Count 4.50 MIL/uL (4.50-6.20) Hemoglobin 13.7 g/dL (14.0-18.0) L Hematocrit 39.4 % (42-54) L Mean Corpuscular Volume 87.6 fL (79-99) Mean Corpuscular Hemoglobin 30.4 pg (27.0-33.0) Mean Corpuscular Hemoglobin Concent 34.8 g/dL (32.0-36.0) Red Cell Distribution Width 12.8 % (11.0-15.5) Platelet Count 158 K/uL (130-400) Mean Platelet Volume 9.4 fL (7.5-10.5) Immature Granulocyte % (Auto) 0.3 % (0-1) Neutrophils (%) (Auto) 60.7 % (40.0-77.0) Lymphocytes (%) (Auto) 18.0 % (21.0-51.0) L Monocytes (%) (Auto) 10.0 % (3.0-13.0) Eosinophils (%) (Auto) 10.5 % (0.0-8.0) H Basophils (%) (Auto) 0.5 % (0.0-5.0) Neutrophils # (Auto) 5.7 K/uL (1.8-7.7) Lymphocytes # (Auto) 1.7 K/uL (1.0-4.8) Monocytes # (Auto) 0.9 K/uL (0.1-1.0) Eosinophils # (Auto) 0.99 K/uL (0.00-0.70) H Basophils # (Auto) 0.05 K/uL (0.00-0.20) Absolute Immature Granulocyte (auto 0.03 K/uL (0-1) Nucleated Red Blood Cells 0.0 % (0.0-0.19) Sodium Level 140 mmol/L (136-145) Potassium Level 3.5 mmol/L (3.5-5.1) Chloride Level 101 mmol/L (101-111) Carbon Dioxide Level 29 mmol/L (21-32) Blood Urea Nitrogen 19 mg/dL (7-18) H Creatinine 1.0 mg/dL (0.5-1.3) Glomerular Filtration Rate Calc 81 mL/min (>90) Random Glucose 121 mg/dL (70-105) H Total Calcium 10.0 mg/dL (8.5-10.1) Troponin I High Sensitivity 11 ng/L (4-75) Signed PATIENT: YONG METCALF MR#: [id number] : 1955 SEX: M AGE: 70 LOCATION: [facility] ORDER 08 STATUS: REG REPORT#: [id number] SERVICE 07 REASON: LEFT LOWER EXTREMITY AND LEFT UPPER EXTREMITY NUMBNESS TINGLING ORDERING PHYSICIAN: MEAGHAN MCGOWAN NP PROCEDURE: HEAD WO - CT HEAD/BRAIN W/O CONTRAST CT HEAD WITHOUT CONTRAST INDICATION: Left lower extremity and left upper extremity numbness and tingling TECHNIQUE: Noncontrast axial helical CT images from the vertex through the skull base using 5 mm slice thickness without contrast material. Coronal and sagittal reconstructions were also included. Dose reduction techniques was used using integrated, automated and adaptive dose reduction exposure control. CT was performed with one or more of the following dose reduction techniques: Automated exposure control, adjustment of the mA and/or kV according to patient size, or use of iterative reconstruction technique. COMPARISON: None FINDINGS: Scattered and coalescent subcortical and periventricular white matter low attenuating areas likely represent residual of chronic small vessel arteriopathy and/or remote vascular insult. Generalized moderate bilateral frontoparietal cerebral cortical atrophy is present.. No evidence for abnormal extra-axial fluid collections or masses. The ventricles and sulci are normal in size and configuration. No evidence for intracranial parenchymal, epidural, or subdural hemorrhage, mass effect or midline shift. The gooden-white matter differentiation is well preserved. No secondary evidence to suggest acute ischemia. Mild calcific plaque is present along the mcneil of the cavernous segments of both internal carotid arteries, including mild along the mcneil of both vertebral arteries at the level of the foramen magnum. Petrous and cavernous segment right internal carotid arterial stent.. The brainstem and cerebellum appear normal. The visualized orbits appear unremarkable. The visible paranasal sinuses and mastoid air cells are clear. The calvarium appears normal. IMPRESSION: Chronic white matter ischemic changes, moderate brain atrophy, and arteriosclerotic disease as described, without acute component. Labs Reviewed?: Yes EKG Comment: EKG SINUS BRADYCARDIA/HEART RATE 52/AXIS NORMAL/INTRAVENTRICULAR BLOCK. ED Course ED Course Orders Procedure Category Date Status Time Ct Head/Brain W/O CT 03/10/25 Resulted Contrast 20:08 Cbc With Differential LAB 03/10/25 Complete 20:08 Troponin I High LAB 03/10/25 Complete Sensitivity 20:08 12 Lead Ekg Tracing- EKG 03/10/25 Logged Technical 20:08 Basic Metabolic Panel LAB 03/10/25 Complete 20:08 Vital Signs Date Time Temp Pulse Resp B/P (MAP) Pulse Ox O2 Delivery O2 Flow Rate FiO2 03/10/25 21:05 97.9 50 18 100/48 98 Room Air* 0 21 03/10/25 19:52 98.4 55 19 153/81 98 Room Air 2150/IS NEUROLOGICALLY INTACT AND NIH IS 0. HE WAS GIVEN THE RESULTS OF HIS CT AND CARDIAC WORKUP STATES HE DOES NOT WANT TO STAY IN THE HOSPITAL AND HE ONLY CAME IN TO MAKE SURE THAT NOTHING WAS GOING ON. HE DEMONSTRATED THAT HE WAS NEUROLOGICALLY INTACT STRENGTH WAS 5+ BILATERALLY. HE DOES NOT WISH TO BE ADMITTED TO THE HOSPITAL FOR OBSERVATION AND WE WILL FOLLOW UP WITH HIS DOCTOR AGREED THAT HE WOULD COME BACK IF ANY CHANGES. PATIENT IS ALERT AND ORIENTED X4 SPEECH IS CLEAR. HEART Score Response (Comments) Value EKG: Repolarization changes 1 Age: > 65yrs (+2) 2 Risk Factors: 3+ risk factors (+2) 2 Initial Troponin: Normal limit (0) 0 Total 5 Medical Decision Making MDM MDM: DIFFERENTIAL DIAGNOSIS: TIA/CVA/ELECTROLYTE IMBALANCE/DEHYDRATION/ANXIETY/NEUROPATHY RATIONALE: TESTS CONSIDERED AND ORDERED SECONDARY TO SHARED DECISION MAKING INCLUDE: EKG/LABS/RADIOLOGY PREVIOUS OUTSIDE RECORDS REVIEWED: OLD ER VISITS. RISK OF COMPLICATION AND/OR MORBIDITY OR MORTALITY OF PATIENT MANAGEMENT: NONE MEDICATIONS-PER MEDICATION RECONCILIATION NEED FOR HOSPITALIZATION: PATIENT DOES NOT MEET CRITERIA FOR HOSPITALIZATION. PATIENT REFUSED ADMISSION AT THIS TIME NEED FOR EMERGENCY MAJOR/MINOR SURGERY: NO THERE ARE NO SOCIAL CONCERNS WITH THIS PATIENT. PRESCRIPTION DRUG MANAGEMENT NONE PRESCRIPTIONS WILL INCLUDE SYMPTOMATIC CARE PATIENT'S PRIOR EXTERNAL MEDICAL RECORDS FROM OTHER ER VISITS WERE REVIEWED BY ME INDICATED. PRIOR TESTING AND RESULTS FROM PREVIOUS VISITS WERE REVIEWED. PRIOR TESTS WERE TAKEN INTO ACCOUNT WITH MEDICAL DECISION MAKING AND RESOURCE UTILIZATION, INDEPENDENT HISTORIAN/HISTORIANS WERE USED TO OBTAIN COMPLETE MEDICAL HISTORY. I INDEPENDENTLY INTERPRETED THE TEST THAT WERE PERFORMED, RESULTS WERE REVIEWED BY ME AND CONSIDERED FINDINGS ON RADIOLOGY IF ORDERED. MEDICAL MANAGEMENT AND EXAMINATION INTERPRETATION DISCUSSIONS WERE HAD BY ME WITH OTHER QUALIFIED HEALTHCARE PROFESSIONALS INDICATED FOR THE PATIENT'S CARE. DX & DISP Disposition: Discharge Departure Impression: Primary Impression: Dysesthesia of multiple sites Additional Impressions: Dehydration, Hyperglycemia Condition: Stable Additional Instructions: FOLLOW-UP WITH PRIMARY CARE PROVIDER IN 1 TO 2 DAYS. TAKE MEDICATIONS DIRECTED HERE IN THE EMERGENCY ROOM. OKAY TO CONTINUE HOME MEDICATIONS UNLESS OTHERWISE DISCUSSED DURING YOUR VISIT IN THE EMERGENCY ROOM TODAY. RETURN TO YOUR NEAREST EMERGENCY ROOM IF SYMPTOMS WORSEN OR IF THERE IS NO IMPROVEMENT. CALL 911 IF YOU NEED IMMEDIATE ASSISTANCE. TAKE TYLENOL OR MOTRIN [id number] NEEDED AND IF NO CONTRAINDICATIONS ARE PRESENT. INCREASE ORAL HYDRATION. A WOUND CULTURE OR URINE CULTURE WAS ORDERED HERE IN THE EMERGENCY ROOM DEPARTMENT PLEASE FOLLOW-UP WITH PRIMARY CARE PROVIDER AND ADVISE THEM TO GET REPEAT PORTS FROM OUR FACILITY. IF YOU HAD ANY SHANNAN WRAP/SPLINTS THAT WERE APPLIED HERE, PLEASE DO NOT REMOVE THEM UNTIL YOU SEE YOUR PRIMARY CARE OR SPECIALTY. DIET AND ACTIVITY TOLERATED. RETURN TO THE EMERGENCY ROOM IMMEDIATELY LOSS OF SPEECH, UNABLE TO MOVE ARM OR LEG OR BOTH. ANY OTHER CONCERNS. Referrals: DEBO TRAORE MD (PCP) Time of Disposition: 21:54 I have reviewed the case, and I agree with, Diagnosis and Plan MEAGHAN MCGOWAN DATABASE MARKETING MANAGER March 10, 2025 20:10
[2025-03-10 20:28] LABS: BASOPHILS # (AUTO) 0.05 K/uL (0.00-0.20); BASOPHILS % (AUTO) 0.5 % (0.0-5.0); EOSINOPHILS # (AUTO) 0.99 K/uL (0.00-0.70); EOSINOPHILS % (AUTO) 10.5 % (0.0-8.0); HEMATOCRIT 39.4 % (42-54); IMMATURE GRANULOCYTE ABSOLUTE 0.03 K/uL (0-1); LYMPHOCYTES # (AUTO) 1.7 K/uL (1.0-4.8); MEAN CORPUSCULAR HEMOGLOBIN 30.4 pg (27.0-33.0); MEAN CORPUSCULAR HGB CONC 34.8 g/dL (32.0-36.0); MEAN CORPUSCULAR VOLUME 87.6 fL (79-99); MONOCYTES # (AUTO) 0.9 K/uL (0.1-1.0); NEUTROPHILS # (AUTO) 5.7 K/uL (1.8-7.7); NEUTROPHILS % (AUTO) 60.7 % (40.0-77.0); PLATELET COUNT (AUTO) 158 K/uL (130-400); RED CELL DISTRIBUTION WIDTH 12.8 % (11.0-15.5); WHITE BLOOD COUNT (AUTO) 9.4 K/uL (4.8-10.8)
[2025-03-10 20:41] LABS: POTASSIUM 3.5 mmol/L (3.5-5.1)
--- NOTE | 2025-03-10 21:44 | HMCIMG ---
CT HEAD WITHOUT CONTRAST INDICATION: Left lower extremity and left upper extremity numbness and tingling TECHNIQUE: Noncontrast axial helical CT images from the vertex through the skull base using 5 mm slice thickness without contrast material. Coronal and sagittal reconstructions were also included. Dose reduction techniques was used using integrated, automated and adaptive dose reduction exposure control. CT was performed with one or more of the following dose reduction techniques: Automated exposure control, adjustment of the mA and/or kV according to patient size, or use of iterative reconstruction technique. COMPARISON: None FINDINGS: Scattered and coalescent subcortical and periventricular white matter low attenuating areas likely represent residual of chronic small vessel arteriopathy and/or remote vascular insult. Generalized moderate bilateral frontoparietal cerebral cortical atrophy is present.. No evidence for abnormal extra-axial fluid collections or masses. The ventricles and sulci are normal in size and configuration. No evidence for intracranial parenchymal, epidural, or subdural hemorrhage, mass effect or midline shift. The gooden-white matter differentiation is well preserved. No secondary evidence to suggest acute ischemia. Mild calcific plaque is present along the mcneil of the cavernous segments of both internal carotid arteries, including mild along the mcneil of both vertebral arteries at the level of the foramen magnum. Petrous and cavernous segment right internal carotid arterial stent.. The brainstem and cerebellum appear normal. The visualized orbits appear unremarkable. The visible paranasal sinuses and mastoid air cells are clear. The calvarium appears normal. IMPRESSION: Chronic white matter ischemic changes, moderate brain atrophy, and arteriosclerotic disease as described, without acute component.
[2025-03-10 22:00] VITALS: BP 132/66; PULSE 50; RESP 16; TEMP 97.9; O2SAT 98
--- NOTE | 2025-03-11 11:23 | EKG ---
[facility] Test Date: 2025-03-10 Test Time: 19:52:46 Pat Name: YONG METCALF Department: [facility] Room: Gender: M Wrong Address Clerk: [id number] : 1955 Requested By: MEAGHAN MCGOWAN Order Number: [id number] Reading MD: Awa Moya Measurements Intervals [place] Rate: 52 P: 61 VT: 160 QRS: 99 QRSD: 126 T: 52 QT: 442 QTc: 413 Interpretive Statements Sinus rhythm Nonspecific intraventricular conduction delay Compared to ECG 10/28/2024 12:15:47 Ventricular premature complex(es) no longer present Myocardial infarct finding no longer present Electronically Signed On 03-11-2025 14:29:46 CDT by Awa Moya Please click the below link to view image of tracing.
== END ==
LOC: EDH 19:51
DX: R20.8 Other disturbances of skin sensation (principal); E86.0 Dehydration; R73.9 Hyperglycemia, unspecified; E78.00 Pure hypercholesterolemia, unspecified; F17.200 Nicotine dependence, unspecified, uncomplicated; G20.A1 Parkinson's disease without dyskinesia, without mention of fluctuations; I10 Essential (primary) hypertension; I21.9 Acute myocardial infarction, unspecified; Z79.01 Long term (current) use of anticoagulants; Z79.02 Long term (current) use of antithrombotics/antiplatelets; Z79.1 Long term (current) use of non-steroidal anti-inflammatories (NSAID); Z79.82 Long term (current) use of aspirin; Z79.899 Other long term (current) drug therapy; Z86.73 Personal history of transient ischemic attack (TIA), and cerebral infarction without residual deficits
CPT/HCPCS: 36415; 70450; 80048; 84484; 85025; 93005; 99284

== ENCOUNTER 2025-03-29 20:41 | Emergency (ER) | payer MEDICARE, MEDICAID ==
[~2025-03-29] VITALS: Ht 172.7 cm; Wt 95.3 kg
[~2025-03-29 20:41] MED LIST changes: +LISI40TA15 PO; -LISI40TA9 PO
--- NOTE | 2025-03-29 21:05 | ERN ---
ED Note History of Present Illness Stated Complaint: C/O HEADACHE X 1 WK Chief Complaint: Headache Time Seen by MD: 20:57 Dictation: This is a 70-year-old male who presented to the emergency room with complaints of a headache for the past 1 week. Apparently he has been taking Tylenol with some relief only for the headache to return. No history of any aura but he does report some nausea. No tearing of the eyes or nasal drainage. Pain is mostly located in the bitemporal areas and it starts in the neck also. He stated that he may not have a good pillow and neck support. No history of any head injury Temperature 97.5 pulse 60 respirations 20 blood pressure 158/77 with a pulse oximetry of 98% on room air His chronic medical problems include anxiety, bipolar depression, coronary art yuliana disease, schizophrenia, Parkinson's, gout, coronary artery bypass surgery, hypertension hyperlipidemia, atrial fibrillation on Eliquis Allergies: Coded Allergies: amiodarone (Unverified Allergy, Unknown, 01/08/23) lorazepam (Unverified Allergy, Unknown, 01/08/23) Home Meds Active Scripts Diclofenac Sodium (Voltaren Arthritis Pain) 1 % Gel..gram., 4 GM TP BID for 7 Days, #1 TUBE Prov:LILIYA MORENO MD 10/28/24 Metronidazole (Flagyl) 375 Mg Capsule, 1 CAP PO BID for 7 Days, #14 CAP 0 Refills Prov:ROB PEÑA 09/16/24 Colchicine (Colchicine) 0.6 Mg Capsule, 0.6 MG PO AD, #15 CAP One capsule by mouth every hour until pain is relieved, you reach a maximum of three capsules, or stomach upset. Prov:MEAGHAN MCGOWAN NP 06/12/24 Acetaminophen (Tylenol) 500 Mg Tab, 500 MG PO Q6HPRN PRN for PAIN LEVEL 1 TO 5 for 5 Days, #30 TAB Prov:LILIYA MORENO MD 01/08/23 Reported Medications Prazosin HCl (Prazosin HCl) 2 Mg Capsule, 1 CAP PO HS 07/26/24 Ezetimibe (Ezetimibe) 10 Mg Tablet, 1 TAB PO HS 07/26/24 Apixaban (Eliquis) 5 Mg Tablet, 1 TAB PO BID 07/26/24 Paliperidone Palmitate (Invega Trinza) 819 Mg/2.63 Ml Syringe, 819 MG IM Q3MTH, SYRINGE 02/25/23 Tamsulosin HCl (Flomax) 0.4 Mg Cap.er.24h, 0.4 MG PO DAILY, CAPSULE.DR 02/25/23 Lamotrigine (Lamotrigine) 300 Mg Tab.er.24, 300 MG PO DAILY 02/25/23 Carbidopa/Levodopa/Entacapone (Stalevo 150) 1 Tab Tab, 2 TAB PO DAILY, TAB 02/25/23 Atorvastatin Calcium (LIPITOR) 40 Mg Tablet, 40 MG PO HS, TAB 02/25/23 Amlodipine Besylate (Norvasc) 10 Mg Tablet, 10 MG PO DAILY, TAB 02/25/23 Lisinopril (Lisinopril) 40 Mg Tablet, 40 MG PO DAILY, TAB 02/25/23 Clopidogrel Bisulfate (Plavix) 75 Mg Tablet, 75 MG PO DAILY, TAB 02/25/23 Carvedilol (Coreg) 12.5 Mg Tablet, 12.5 MG PO BID, TAB 02/25/23 Buspirone HCl (Buspar) 15 Mg Tab, 15 MG PO BID, TAB 02/25/23 Aspirin (ASPIRIN 81 MG ECTAB) 81 Mg Ectab, 81 MG PO DAILY, TAB.EC 02/25/23 Chlorthalidone (Chlorthalidone) 25 Mg Tablet, 25 MG PO DAILY, TAB 02/25/23 Past Medical History Past Medical History: A-Fib, Anxiety, Bipolar, CAD, Diverticulosis, High Cholesterol, Heart Disease, Hypertension, Schizophrenia, Other Additional Past Medical Hx: HX OF PARKINSON'S, DOUBLE BYPASS Surgical History: Other Surgical History Other: CARDIAC STENT; STENT TO BRAIN; Family History: Negative Social History: Smokers, Lives alone RN Note Reviewed/Agreed w/PFSH: Yes Review of System Dictation Constitutional: Negative for fever,chills, and weight loss Eyes: Negative for injury, pain,redness, and discharge ENT: Negative for injury,pain or swelling Cardiovascular: Negative for chest pain, palpitations, and edema Respiratory: Negative for shortness of breath, cough, and wheezing, Abdomen/GI: Negative for abdominal pain, nausea, vomiting, diarrhea, and constipation Back: Negative for injury and pain : Negative for injury, bleeding and discharge MS/Extremity: Negative for injury and deformity Skin: Negative for rash, and discoloration Neuro: Positive for headache, denied weakness, numbness, tingling, and seizure Psych: Negative for suicide ideation, homicidal ideation, and hallucinations Initial Vital Sign VS Vital Signs Date Time Temp Pulse Resp B/P (MAP) Pulse Ox O2 Delivery O2 Flow Rate FiO2 03/29/25 20:43 97.5 60 20 158/77 97 Room Air Physical Exam Dictation General: awake, alert, NAD Head/Face: Normocephalic, atraumatic Eyes: PERRL, EOMI, vision at baseline ENT: oral cavity clear, TMs clear, no signs of infection Neck: Trachea midline, supple, no nuchal rigidity Cardiovascular: RRR, normal S1/S2, No MRGs, no JVD Respiratory: CTAB, no respiratory distress, No rales or wheezes Abdomen: Soft, non-tender, non-distended, normal bowel sounds, no guarding or rebound. Skin: Warm, dry, normal turgor, no rash MS/Extremity: Pulses equal, no cyanosis, neurovascular intact, FROM Neuro: COAx4, GCS 15, strength 5/5, CN 2-12 intact, normal cerebellar exam, normal gait, Psych: Normal behavior, mood, and affect normal Extremities-trace edema without any palpable cords, Homans sign is negative Results (Laboratory/Radiology) Laboratory/Radiology Laboratory Tests Test 03/29/25 22:19 White Blood Count 8.2 K/uL (4.8-10.8) Red Blood Count 4.76 MIL/uL (4.50-6.20) Hemoglobin 14.7 g/dL (14.0-18.0) Hematocrit 42.2 % (42-54) Mean Corpuscular Volume 88.7 fL (79-99) Mean Corpuscular Hemoglobin 30.9 pg (27.0-33.0) Mean Corpuscular Hemoglobin Concent 34.8 g/dL (32.0-36.0) Red Cell Distribution Width 12.7 % (11.0-15.5) Platelet Count 182 K/uL (130-400) Mean Platelet Volume 9.6 fL (7.5-10.5) Immature Granulocyte % (Auto) 0.5 % (0-1) Neutrophils (%) (Auto) 59.3 % (40.0-77.0) Lymphocytes (%) (Auto) 18.6 % (21.0-51.0) L Monocytes (%) (Auto) 11.4 % (3.0-13.0) Eosinophils (%) (Auto) 9.7 % (0.0-8.0) H Basophils (%) (Auto) 0.5 % (0.0-5.0) Neutrophils # (Auto) 4.9 K/uL (1.8-7.7) Lymphocytes # (Auto) 1.5 K/uL (1.0-4.8) Monocytes # (Auto) 0.9 K/uL (0.1-1.0) Eosinophils # (Auto) 0.80 K/uL (0.00-0.70) H Basophils # (Auto) 0.04 K/uL (0.00-0.20) Absolute Immature Granulocyte (auto 0.04 K/uL (0-1) Nucleated Red Blood Cells 0.0 % (0.0-0.19) Sodium Level 143 mmol/L (136-145) Potassium Level 3.5 mmol/L (3.5-5.1) Chloride Level 103 mmol/L (101-111) Carbon Dioxide Level 30 mmol/L (21-32) Blood Urea Nitrogen 19 mg/dL (7-18) H Creatinine 1.1 mg/dL (0.5-1.3) Glomerular Filtration Rate Calc 72 mL/min (>90) Random Glucose 115 mg/dL (70-105) H Total Calcium 10.1 mg/dL (8.5-10.1) Magnesium Level 2.00 mg/dL (1.80-2.40) Labs Reviewed?: Yes CT Scan Comment: REASON: Headache for One week. intractable ORDERING PHYSICIAN: JANE PRINCE MD PROCEDURE: HEAD WO - CT HEAD/BRAIN W/O CONTRAST CT HEAD/BRAIN W/O CONTRAST HISTORY: Headaches COMPARISON: None TECHNIQUE: Multiple sequential axial images of the head were obtained from the base of the skull through vertex. Patient was not given contrast through intravenous route. FINDINGS: The ventricles and extraventricular CSF spaces are dilated consistent with cerebral atrophy. Nonspecific white matter changes seen. There is no midline shift, mass effect or herniation. No acute intracranial bleed is seen. Visualized portion of the paranasal sinuses are grossly within normal limits. IMPRESSION: 1. No acute intracranial bleed is seen. 2. Atrophy with white matter changes. CT was performed with one or more following dose reduction techniques: automated exposure control, adjustment of the mA and kv according to patient's size, or use of a iterative reconstruction technique. DICTATED BY: JOSE CARLOS MOLINA MD DATE: 03/29/252211 ELECTRONICALLY SIGNED BY: JOSE CARLOS MOLINA MD DATE: 03/29/252216 ED Course ED Course Orders Procedure Category Date Status Time Ct Head/Brain W/O CT 03/29/25 Resulted Contrast 20:59 Cbc With Differential LAB 03/29/25 Complete 20:59 Basic Metabolic Panel LAB 03/29/25 Complete 20:59 Magnesium LAB 03/29/25 Complete 20:59 Ketorolac PHA 03/29/25 In Process Tromethamine 30mg/Ml 23:00 Diphenhydramine Hcl PHA 03/29/25 In Process (Benadryl Inj) 23:00 Cyclobenzaprine Hcl PHA 03/29/25 In Process (Cyclobenzaprine Hcl 23:00 Current Medications Medications (Trade) Dose Ordered Sig/Edward Route PRN Reason Start Time Stop Time Status Last Admin Dose Admin Cyclobenzaprine HCl (Cyclobenzaprine HCl) 5 mg ONCE ONCE PO 03/29/25 23:00 03/29/25 23:01 03/29/25 22:54 Diphenhydramine HCl (BENAdryl INJ) 25 mg ONCE ONCE IM 03/29/25 23:00 03/29/25 23:01 03/29/25 22:54 Ketorolac Tromethamine (toRADol) 30 mg ONCE ONCE IM 03/29/25 23:00 03/29/25 23:01 03/29/25 22:55 Vital Signs Date Time Temp Pulse Resp B/P (MAP) Pulse Ox O2 Delivery O2 Flow Rate FiO2 03/29/25 20:43 97.5 60 20 158/77 97 Room Air We will perform diagnostic labs, advanced imaging and administer medications according to the patient's complaint. Once the results are available, will review and personally interpreted the labs to rule out any acute life- threatening emergency the trach require immediate intervention and treatment. I will then re-evaluate the patient after treatment and diagnostic exams have return to determine whether the patient requires any further testing, can safely be discharged home or need further admission to hospital for additional treatment and evaluation. 10:[address] scan of the head without contrast-no evidence of any intracranial hemorrhage or acute changes. Chronic atrophy and white matter disease. Medical Decision Making MDM MDM: Differential diagnosis: Migraine headache, cluster headache, tension headache, Tylenol NSAID induced headache, intracranial event Rationale: Tests considered and ordered secondary to shared decision making i nclude: Previous outside records reviewed: Old ER visits. Risk of complication and/or morbidity or mortality of patient management: None Medications-Per medication reconciliation Need for hospitalization: Patient does not meet criteria for hospitalization. Need for emergency major/minor surgery: No There are no social concerns with this patient. Prescription drug management Prescriptions will include symptomatic care Patient's prior external medical records from other ER visits were reviewed by me as indicated. Prior testing and results from previous visits were reviewed. Prior tests were taken into account with medical decision making and resource utilization, independent historian/historians were used to obtain complete medical history. I independently interpreted the test that were performed, results were reviewed by me and considered findings on radiology if ordered. Medical management and examination interpretation discussions were had by me with other qualified healthcare professionals as indicated for the patient's care. Problem List Problem List: (1) Neck pain (2) Tension headache (3) Cervical paraspinal muscle spasm (4) Hypertension DX & DISP Disposition: Discharge Departure Impression: Primary Impression: Tension headache Additional Impressions: Hypertension, Neck pain, Cervical paraspinal muscle spasm Condition: Stable Scripts Acetaminophen with Codeine (Acetaminophen-Cod #3 Tablet) 300 Mg-30 Mg Tablet 1 TAB PO TID PRN for pain for 5 Days, #15 TAB 0 Refills Prov: JANE PRINCE MD 03/29/25 Cyclobenzaprine HCl (Cyclobenzaprine HCl) 5 Mg Tablet 1 TAB PO TIDP PRN for muscle spasms for 5 Days, #15 TAB 0 Refills Prov: JANE PRINCE MD 03/29/25 Additional Instructions: Patient and the caregiver have been informed of all the diagnostic tests and the imaging conducted during the today's visit to the emergency room and has verbalized understanding of the results I have personally reviewed and interpreted all diagnostic exams performed here in the ER today as well as the vital signs documented by the nursing staff. The patient is now being discharged to home and should follow up with the primary care physician or the specialist as directed by the ER staff. Follow-up with primary care provider in 1 to 2 days. Take medications as directed here in the emergency room. Okay to continue home medications unless otherwise discussed during your visit in the emergency room today. Return to your nearest emergency room if symptoms worsen or if there is no improvement. Call 911 if you need immediate assistance. Take Tylenol or Motrin [id number] as needed and if no contraindications are present. Increase oral hydration. A wound culture or urine culture was ordered here in the emergency room department please follow-up with primary care provider and advise them to get repeat ports from our facility. If you had any Eryes wrap/splints that were applied here, please do not remove them until you see your primary care or specialty. Referrals: DEBO TRAORE MD (PCP) JANE RPINCE MD Mar 29, 2025 21:05
--- NOTE | 2025-03-29 22:17 | HMCIMG ---
CT HEAD/BRAIN W/O CONTRAST HISTORY: Headaches COMPARISON: None TECHNIQUE: Multiple sequential axial images of the head were obtained from the base of the skull through vertex. Patient was not given contrast through intravenous route. FINDINGS: The ventricles and extraventricular CSF spaces are dilated consistent with cerebral atrophy. Nonspecific white matter changes seen. There is no midline shift, mass effect or herniation. No acute intracranial bleed is seen. Visualized portion of the paranasal sinuses are grossly within normal limits. IMPRESSION: 1. No acute intracranial bleed is seen. 2. Atrophy with white matter changes. CT was performed with one or more following dose reduction techniques: automated exposure control, adjustment of the mA and kv according to patient's size, or use of a iterative reconstruction technique.
[2025-03-29 22:32] LABS: BASOPHILS # (AUTO) 0.04 K/uL (0.00-0.20); BASOPHILS % (AUTO) 0.5 % (0.0-5.0); EOSINOPHILS % (AUTO) 9.7 % (0.0-8.0); HEMATOCRIT 42.2 % (42-54); IMMATURE GRANULOCYTE ABSOLUTE 0.04 K/uL (0-1); LYMPHOCYTES # (AUTO) 1.5 K/uL (1.0-4.8); LYMPHOCYTES % (AUTO) 18.6 % (21.0-51.0); MEAN CORPUSCULAR HEMOGLOBIN 30.9 pg (27.0-33.0); MEAN CORPUSCULAR HGB CONC 34.8 g/dL (32.0-36.0); MEAN CORPUSCULAR VOLUME 88.7 fL (79-99); MONOCYTES # (AUTO) 0.9 K/uL (0.1-1.0); MONOCYTES % (AUTO) 11.4 % (3.0-13.0); NEUTROPHILS # (AUTO) 4.9 K/uL (1.8-7.7); NEUTROPHILS % (AUTO) 59.3 % (40.0-77.0); PLATELET COUNT (AUTO) 182 K/uL (130-400); RED BLOOD CELL COUNT(AUTO) 4.76 MIL/uL (4.50-6.20); RED CELL DISTRIBUTION WIDTH 12.7 % (11.0-15.5); WHITE BLOOD COUNT (AUTO) 8.2 K/uL (4.8-10.8)
[2025-03-29 22:39] LABS: CREATININE 1.1 mg/dL (0.5-1.3); POTASSIUM 3.5 mmol/L (3.5-5.1)
[2025-03-29] MEDS: CYCLOBENZAPRINE HCL 10 MG TABLET PO ONE (22:54)
[2025-03-29] MEDS: DiphenhydrAMINE HCL 50 MG/ML VIAL IM ONE (22:54)
[2025-03-29] MEDS: ketOROlac 30MG VIAL (30MG/ML) IM ONE (22:55)
[2025-03-29] MEDS ORDERED: CYCL5TAB3 PO (22:59)
[2025-03-29] MEDS ORDERED: ACET-2079 PO (22:59)
[2025-03-29 23:13] VITALS: BP 163/96; PULSE 82; RESP 18; TEMP 98.6; O2SAT 96
== END 2025-03-29 23:15 | disposition home or self-care (01) ==
LOC: EDH 20:41
DX: G44.209 Tension-type headache, unspecified, not intractable (principal); M62.838 Other muscle spasm; M54.2 Cervicalgia; I11.9 Hypertensive heart disease without heart failure; I25.10 Atherosclerotic heart disease of native coronary artery without angina pectoris; E78.00 Pure hypercholesterolemia, unspecified; F17.200 Nicotine dependence, unspecified, uncomplicated; F20.9 Schizophrenia, unspecified; F31.9 Bipolar disorder, unspecified; F41.9 Anxiety disorder, unspecified; G20.A1 Parkinson's disease without dyskinesia, without mention of fluctuations; I48.91 Unspecified atrial fibrillation; Z79.01 Long term (current) use of anticoagulants; Z79.02 Long term (current) use of antithrombotics/antiplatelets; Z79.1 Long term (current) use of non-steroidal anti-inflammatories (NSAID); Z79.82 Long term (current) use of aspirin; Z79.899 Other long term (current) drug therapy; Z95.5 Presence of coronary angioplasty implant and graft; Z98.890 Other specified postprocedural states
CPT/HCPCS: 99285; 70450; 83735; 80048; 85025; 36415; 96372 ×2; J1885; J1200

== ENCOUNTER 2025-04-23 03:13 | Emergency (ER) | payer MEDICARE ==
[~2025-04-23] VITALS: Ht 172.7 cm; Wt 95.3 kg
[~2025-04-23 03:13] MED LIST changes: +ACET-2079 PO; +CYCL5TAB3 PO
--- NOTE | 2025-04-23 03:26 | NUR ---
PT CARE ASSUMED AT THIS TIME. REPORT OBTAINED FROM EMS.
--- NOTE | 2025-04-23 03:35 | EKG ---
[facility] Test Date: 2025-04-23 Test Time: 03:31:04 Pat Name: YONG METCALF Department: [facility] Room: Gender: M All Round Logger: [id number] : 1955 Requested By: SANDRA GALLO Order Number: [id number] Reading MD: Lucas Mcadams Measurements Intervals [place] Rate: 63 P: 31 IN: 158 QRS: 88 QRSD: 135 T: 25 QT: 446 QTc: 456 Interpretive Statements Sinus rhythm Nonspecific intraventricular conduction delay Compared to ECG 03/10/2025 19:52:46 No significant changes Electronically Signed On 04-23-2025 10:33:59 CDT by Lucas Mcadams Please click the below link to view image of tracing.
[2025-04-23 03:47] LABS: IMMATURE GRANULOCYTE ABSOLUTE 0.03 K/uL (0-1); NUCLEATED RED BLOOD CELLS 0.0 % (0.0-0.19); PLATELET COUNT (AUTO) 158 K/uL (130-400); RED BLOOD CELL COUNT(AUTO) 4.57 MIL/uL (4.50-6.20); RED CELL DISTRIBUTION WIDTH 12.6 % (11.0-15.5); WHITE BLOOD COUNT (AUTO) 8.8 K/uL (4.8-10.8)
[2025-04-23 03:56] LABS: CREATININE 0.9 mg/dL (0.5-1.3); GLOMERULAR FILTR. RATE CALC 92.0 mL/min (>90); GLUCOSE,RANDOM 140.0 mg/dL (70-105); SODIUM SERUM 142.0 mmol/L (136-145); UREA NITROGEN, BLOOD 21.0 mg/dL (7-18)
--- NOTE | 2025-04-23 04:05 | ERN ---
General Chief Complaint: Chest Pain Stated Complaint: CHEST PAIN Time Seen by MD: 03:52 Source: patient History of Present Illness Initial Comments Patient is a 70-year-old male with a past medical history of coronary artery disease status post CABG. He woke up this morning at 3:00 a.m. with chest pain and shortness of breath. He called 911 to be brought to the emergency room for evaluation. When I examined the patient he stated that his chest pain was gone, his shortness of breath was gone, and he would like to go home. Allergies: Coded Allergies: amiodarone (Unverified Allergy, Unknown, 01/08/23) lorazepam (Unverified Allergy, Unknown, 01/08/23) Home Meds Active Scripts Acetaminophen with Codeine (Acetaminophen-Cod #3 Tablet) 300 Mg-30 Mg Tablet, 1 TAB PO TID PRN for pain for 5 Days, #15 TAB 0 Refills Prov:JANE PRINCE MD 03/29/25 Cyclobenzaprine HCl (Cyclobenzaprine HCl) 5 Mg Tablet, 1 TAB PO TIDP PRN for muscle spasms for 5 Days, #15 TAB 0 Refills Prov:JANE PRINCE MD 03/29/25 Diclofenac Sodium (Voltaren Arthritis Pain) 1 % Gel..gram., 4 GM TP BID for 7 Days, #1 TUBE Prov:LILIYA MORENO MD 10/28/24 Metronidazole (Flagyl) 375 Mg Capsule, 1 CAP PO BID for 7 Days, #14 CAP 0 Refills Prov:ROB PEÑA 09/16/24 Colchicine (Colchicine) 0.6 Mg Capsule, 0.6 MG PO AD, #15 CAP One capsule by mouth every hour until pain is relieved, you reach a maximum of three capsules, or stomach upset. Prov:MEAGHAN MCGOWAN NP 06/12/24 Acetaminophen (Tylenol) 500 Mg Tab, 500 MG PO Q6HPRN PRN for PAIN LEVEL 1 TO 5 for 5 Days, #30 TAB Prov:LILIYA MORENO MD 01/08/23 Reported Medications Prazosin HCl (Prazosin HCl) 2 Mg Capsule, 1 CAP PO HS 07/26/24 Ezetimibe (Ezetimibe) 10 Mg Tablet, 1 TAB PO HS 07/26/24 Apixaban (Eliquis) 5 Mg Tablet, 1 TAB PO BID 07/26/24 Paliperidone Palmitate (Invega Trinza) 819 Mg/2.63 Ml Syringe, 819 MG IM Q3MTH, SYRINGE 02/25/23 Tamsulosin HCl (Flomax) 0.4 Mg Cap.er.24h, 0.4 MG PO DAILY, CAPSULE.DR 02/25/23 Lamotrigine (Lamotrigine) 300 Mg Tab.er.24, 300 MG PO DAILY 02/25/23 Carbidopa/Levodopa/Entacapone (Stalevo 150) 1 Tab Tab, 2 TAB PO DAILY, TAB 02/25/23 Atorvastatin Calcium (LIPITOR) 40 Mg Tablet, 40 MG PO HS, TAB 02/25/23 Amlodipine Besylate (Norvasc) 10 Mg Tablet, 10 MG PO DAILY, TAB 02/25/23 Lisinopril (Lisinopril) 40 Mg Tablet, 40 MG PO DAILY, TAB 02/25/23 Clopidogrel Bisulfate (Plavix) 75 Mg Tablet, 75 MG PO DAILY, TAB 02/25/23 Carvedilol (Coreg) 12.5 Mg Tablet, 12.5 MG PO BID, TAB 02/25/23 Buspirone HCl (Buspar) 15 Mg Tab, 15 MG PO BID, TAB 02/25/23 Aspirin (ASPIRIN 81 MG ECTAB) 81 Mg Ectab, 81 MG PO DAILY, TAB.EC 02/25/23 Chlorthalidone (Chlorthalidone) 25 Mg Tablet, 25 MG PO DAILY, TAB 02/25/23 Past Medical History Past Medical History: A-Fib, Anxiety, Bipolar, CAD, Diverticulosis, High Cholesterol, Heart Disease, Hypertension, Schizophrenia, Other Medical History Other: HX OF PARKINSON'S, DOUBLE BYPASS Past Surgical History: CABG, Other Surgical History Other: CARDIAC STENT; STENT TO BRAIN; Family History Family History: Negative Social History Social History: Smokers, Lives alone Constitutional: (-) chills, (-) diaphoresis, (-) fever, (-) malaise, (-) weakness, (-) other documentation EENTM: (-) eye pain, (-) blurred vision, (-) tearing, (-) double vision, (-) ear pain, (-) ear discharge, (-) nose pain, (-) nose congestion, (-) throat pain, (-) Throat swelling, (-) mouth pain, (-) tooth pain, (-) mouth swelling, (-) other documentation Respiratory: (-) cough, (-) orthopnea, (-) short of breath, (-) stridor, (-) wheezing, (-) other documentation Cardiovascular: (-) chest pain, (-) edema, (-) palpitations, (-) syncope, (-) dyspnea on exertion, (-) other documentation Gastrointestinal/Abdominal: (-) nausea, (-) vomiting, (-) diarrhea, (-) abdominal pain, (-) abdominal distention, (-) constipation, (-) rectal bleeding, (-) dark stool/melena, (-) other documentation Genitourinary: (-) penile discharge, (-) dysuria, (-) frequency, (-) hematuria, (-) pain, (-) other documentation Musculoskeletal: (-) Neck pain, (-) back pain, (-) Flank Pain, (-) joint pain, (-) joint swelling, (-) muscle pain, (-) muscle stiffness, (-) gout, (-) other documentation Skin: (-) laceration, (-) contusion, (-) abrasion, (-) abscess, (-) rash, (-) change in color, (-) change in hair, (-) change in nails, (-) diaphoresis, (-) dryness, (-) other documentation Neuro: (-) altered mental status, (-) headache, (-) syncope, (-) paralysis, (-) numbness, (-) seizure, (-) pre-existing deficit, (-) tremors, (-) weakness, (-) dizziness, (-) slurred speech, (-) vertigo, (-) other documentation Physical Exam General Appearance: (+) no apparent distress Orientation: (+) alert, (+) oriented x 3 Head/Face Trauma: No Eye: bilateral eye normal inspection, bilateral eye PERRL, bilateral eye EOMI Ear, Nose, Throat: (+) hearing grossly normal, (+) normal ENT inspection Neck: (+) normal inspection, (+) supple, (+) full range of motion, (+) no JVD Respiratory: (+) chest non-tender, (+) lungs clear, (+) well ventilated Heart: (+) regular, (+) no gallop Vascular: (+) no edema, (+) normal peripheral pulse Gastrointestinal: (+) soft, (+) non-tender, (+) no organomegaly, (+) bowel sound present Extremities: (+) no pedal edema Results Laboratory and Microbiology Lab and Micro Result Laboratory Tests Test 04/23/25 03:39 White Blood Count 8.8 K/uL (4.8-10.8) Red Blood Count 4.57 MIL/uL (4.50-6.20) Hemoglobin 14.2 g/dL (14.0-18.0) Hematocrit 39.7 % (42-54) L Mean Corpuscular Volume 86.9 fL (79-99) Mean Corpuscular Hemoglobin 31.1 pg (27.0-33.0) Mean Corpuscular Hemoglobin Concent 35.8 g/dL (32.0-36.0) Red Cell Distribution Width 12.6 % (11.0-15.5) Platelet Count 158 K/uL (130-400) Mean Platelet Volume 9.3 fL (7.5-10.5) Immature Granulocyte % (Auto) 0.3 % (0-1) Neutrophils (%) (Auto) 71.4 % (40.0-77.0) Lymphocytes (%) (Auto) 11.6 % (21.0-51.0) L Monocytes (%) (Auto) 7.8 % (3.0-13.0) Eosinophils (%) (Auto) 8.3 % (0.0-8.0) H Basophils (%) (Auto) 0.6 % (0.0-5.0) Neutrophils # (Auto) 6.3 K/uL (1.8-7.7) Lymphocytes # (Auto) 1.0 K/uL (1.0-4.8) Monocytes # (Auto) 0.7 K/uL (0.1-1.0) Eosinophils # (Auto) 0.73 K/uL (0.00-0.70) H Basophils # (Auto) 0.05 K/uL (0.00-0.20) Absolute Immature Granulocyte (auto 0.03 K/uL (0-1) Nucleated Red Blood Cells 0.0 % (0.0-0.19) Sodium Level 142 mmol/L (136-145) Potassium Level 3.6 mmol/L (3.5-5.1) Chloride Level 100 mmol/L (101-111) L Carbon Dioxide Level 25 mmol/L (21-32) Blood Urea Nitrogen 21 mg/dL (7-18) H Creatinine 0.9 mg/dL (0.5-1.3) Glomerular Filtration Rate Calc 92 mL/min (>90) Random Glucose 140 mg/dL (70-105) H Total Calcium 9.9 mg/dL (8.5-10.1) Troponin I High Sensitivity 10 ng/L (4-75) B-Type Natriuretic Peptide 64 pg/mL (0-100) MDM MDM: Differential diagnosis: Patient here for transient chest pain and shortness of breath. The symptoms have resolved. Given the patient's extensive cardiac history we will at least do a cursory cardiac workup. Other causes could have been gas pain chest wall pain muscle stitch anxiety transient arrhythmia. Patient does have a history of anxiety and atrial fibrillation. Rationale: Tests considered and ordered secondary to shared decision making include: Previous outside records reviewed: Old ER visits. Risk of complication and/or morbidity or mortality of patient management: None Medications-Per medication reconciliation Need for hospitalization: Patient does meet criteria for hospitalization. Need for emergency major/minor surgery: No There are no social concerns with this patient. Prescription drug management Prescriptions will include symptomatic care Patient's prior external medical records from other ER visits were reviewed by me as indicated. Prior testing and results from previous visits were reviewed. Prior tests were taken into account with medical decision making and resource utilization, independent historian/historians were used to obtain complete medical history. I independently interpreted the test that were performed, results were reviewed by me and considered findings on radiology if ordered. Patient's workup is negative for infection as his white cell count is normal his chemistry panel is likewise normal except for hypochloremia. Patient's cardiac enzymes are negative as well. Chest x-ray shows no acute changes. Patient is stable for discharge. ED Course Orders Procedure Category Date Status Time 12 Lead Ekg Tracing- EKG 04/23/25 Complete Technical 03:22 Cbc With Differential LAB 04/23/25 Complete 03:22 Basic Metabolic Panel LAB 04/23/25 Complete 03:22 Troponin I High LAB 04/23/25 Complete Sensitivity 03:22 B-Type Natriuretic LAB 04/23/25 Complete Peptide 03:22 Chest 1vw RAD 04/23/25 Resulted 03:22 Urinalysis Profile LAB 04/23/25 In Process 03:22 Vital Signs Date Time Temp Pulse Resp B/P (MAP) Pulse Ox O2 Delivery O2 Flow Rate FiO2 04/23/25 03:41 98.1 64 11 129/64 95 Room Air* 0 21 04/23/25 03:16 98.1 67 18 161/71 95 Nasal Cannula 2.0 DX & DISP Disposition: Discharge Departure Impression: Primary Impression: Chest pain Condition: Stable Additional Instructions: Your cardiac workup is negative you are not having an acute myocardial infarction. Her chemistry panel is normal except for a hypochloremia. Suggests possibly dehydration. Drink plenty of fluids in his hot weather. Please return to the emergency room if you have recurrence of your cardiac symptoms. Referrals: DEBO TRAORE MD (PCP) SANDRA GALLO MD Apr 23, 2025 04:05
--- NOTE | 2025-04-23 04:31 | HMCIMG ---
EXAM: CR Chest, 1 view. CLINICAL HISTORY: Chest pain. COMPARISON: Prior chest radiograph dated 10/28/24. FINDINGS: Post-sternotomy status. Bilateral lung muhammad are clear with no acute infiltrates. No pleural effusion or pneumothorax. Unremarkable cardiomediastinal silhouette. No acute osseous abnormality. Impression: No acute cardiopulmonary abnormality. No significant interval change from the prior chest x-ray dated 10/28/24. /[place]
[2025-04-23 04:59] LABS: APPEARANCE,URINE CLEAR (CLEAR); GLUCOSE, URINE (UA) NEGATIVE (NEGATIVE); LEUKOCYTE ESTERASE ,URINE NEGATIVE Leu/uL (NEGATIVE); NITRATE,URINE NEGATIVE (NEGATIVE); OCCULT BLOOD,URINE NEGATIVE (NEGATIVE)
[2025-04-23 05:12] LABS: ADD UA MICROSCOPIC NO
[2025-04-23 05:19] VITALS: BP 149/58; PULSE 75; RESP 16; TEMP 98; O2SAT 95
== END 2025-04-23 05:28 | disposition home or self-care (01) ==
LOC: EDH 03:13
DX: R07.89 Other chest pain (principal); I48.91 Unspecified atrial fibrillation; I10 Essential (primary) hypertension; I25.10 Atherosclerotic heart disease of native coronary artery without angina pectoris; E78.00 Pure hypercholesterolemia, unspecified; F17.200 Nicotine dependence, unspecified, uncomplicated; F20.9 Schizophrenia, unspecified; F31.9 Bipolar disorder, unspecified; F41.9 Anxiety disorder, unspecified; Z79.01 Long term (current) use of anticoagulants; Z79.02 Long term (current) use of antithrombotics/antiplatelets; Z79.1 Long term (current) use of non-steroidal anti-inflammatories (NSAID); Z79.82 Long term (current) use of aspirin; Z79.899 Other long term (current) drug therapy; Z95.1 Presence of aortocoronary bypass graft; Z95.5 Presence of coronary angioplasty implant and graft
CPT/HCPCS: 36415; 71045; 80048; 81003; 83880; 84484; 85025; 93005; 99285

== ENCOUNTER 2025-06-23 15:40 | Emergency (ER) | payer MEDICARE, MEDICAID ==
[~2025-06-23] VITALS: Ht 172.7 cm; Wt 95.3 kg
[~2025-06-23 15:40] MED LIST changes: -EZET10TA48 PO; +EZET10TA80 PO
[2025-06-23 16:02] LABS: IMMATURE GRANULOCYTE ABSOLUTE 0.04 K/uL (0-1); NUCLEATED RED BLOOD CELLS 0.0 % (0.0-0.19); PLATELET COUNT (AUTO) 184 K/uL (130-400); RED BLOOD CELL COUNT(AUTO) 4.39 MIL/uL (4.50-6.20); RED CELL DISTRIBUTION WIDTH 12.7 % (11.0-15.5); WHITE BLOOD COUNT (AUTO) 9.9 K/uL (4.8-10.8)
--- NOTE | 2025-06-23 16:14 | NUR ---
PATIENT IN ER LOBBY. PENDING GFR RESULTS, IV SITE, & CONSENT FOR CT EXAM.
[2025-06-23 16:19] LABS: CREATININE 1.4 mg/dL (0.5-1.3); GLOMERULAR FILTR. RATE CALC 54.0 mL/min (>90); GLUCOSE,RANDOM 99.0 mg/dL (70-105); SODIUM SERUM 140.0 mmol/L (136-145); UREA NITROGEN, BLOOD 19.0 mg/dL (7-18)
[2025-06-23] MEDS: 0.9%NACL 1000ML 1,000 ML IV ONE (17:02)
[2025-06-23] MEDS ORDERED: IOHEXOL-350 75 ML VIAL IV ONE (17:44)
--- NOTE | 2025-06-23 19:16 | HMCIMG ---
EXAMINATION: CT Abdomen and Pelvis with intravenous contrast CLINICAL HISTORY: Periumbilical hernia with tenderness, to rule out incarceration. COMPARISON: CT abdomen dated 09/17/2024. TECHNIQUE: Axial CT of the abdomen and pelvis with intravenous contrast. Multiplanar reformations were generated and reviewed. CONTRAST: With intravenous contrast. FINDINGS LUNG BASES: Clear. No pleural effusions. LIVER: Unremarkable. GALLBLADDER AND BILE DUCTS: Unremarkable. PANCREAS: Unremarkable. SPLEEN: Unremarkable. ADRENAL GLANDS: Left adrenal gland contains a 1.6 x 1.5 cm nodule, likely an adenoma. Right adrenal gland is unremarkable. KIDNEYS, URETERS, AND BLADDER: Right kidney contains an 8 mm cortical cyst. No calculi or obstruction. Left kidney is unremarkable. Urinary bladder is unremarkable. STOMACH AND BOWEL: Scattered colonic diverticula are present. No diverticulitis. APPENDIX: No CT features of acute appendicitis. PERITONEUM: Umbilical hernia contains intra?abdominal fat with mild fatty stranding, suggesting ongoing inflammation. Bowel loop is not present within the hernia. Hernial neck measures 2.2 x1.5 cm. LYMPH NODES: No lymphadenopathy. REPRODUCTIVE: Unremarkable. VASCULATURE: Mild atheromatous calcification of the abdominal aorta is present. BONES: Mild spondylotic changes are noted. IMPRESSION Umbilical hernia containing intra?abdominal fat with mild fatty stranding, indicating ongoing inflammation; bowel loops not present within the hernia, and the hernia neck measures 2.2 x 1.5 cm. Incidentally noted left adrenal gland nodule, likely an adenoma, right renal cortical cyst, and mild colonic diverticulosis without diverticulitis. /[place]
--- NOTE | 2025-06-23 19:45 | ERN ---
General Chief Complaint: Other Problems Stated Complaint: SWOLLEN BELLY BUTTON Time Seen by MD: 15:41 Time Seen by Midlevel: 15:41 Source: patient History of Present Illness Initial Comments 70-year-old male presenting to the emergency department for evaluation pain around his periumbilical hernia. Patient states he had this hernia for several years but the pain is new. Denies any direct injury. Denies any heavy lifting recently. Denies any other symptoms Allergies: Coded Allergies: amiodarone (Unverified Allergy, Unknown, 01/08/23) lorazepam (Unverified Allergy, Unknown, 01/08/23) Home Meds Active Scripts Acetaminophen with Codeine (Acetaminophen-Cod #3 Tablet) 300 Mg-30 Mg Tablet, 1 TAB PO TID PRN for pain for 5 Days, #15 TAB 0 Refills Prov:JANE PRINCE MD 03/29/25 Cyclobenzaprine HCl (Cyclobenzaprine HCl) 5 Mg Tablet, 1 TAB PO TIDP PRN for muscle spasms for 5 Days, #15 TAB 0 Refills Prov:JANE PRINCE MD 03/29/25 Diclofenac Sodium (Voltaren Arthritis Pain) 1 % Gel..gram., 4 GM TP BID for 7 Days, #1 TUBE Prov:LILIYA MORENO MD 10/28/24 Metronidazole (Flagyl) 375 Mg Capsule, 1 CAP PO BID for 7 Days, #14 CAP 0 Refills Prov:ROB PEÑA 09/16/24 Colchicine (Colchicine) 0.6 Mg Capsule, 0.6 MG PO AD, #15 CAP One capsule by mouth every hour until pain is relieved, you reach a maximum of three capsules, or stomach upset. Prov:MEAGHAN MCGOWAN NP 06/12/24 Acetaminophen (Tylenol) 500 Mg Tab, 500 MG PO Q6HPRN PRN for PAIN LEVEL 1 TO 5 for 5 Days, #30 TAB Prov:LILIYA MORENO MD 01/08/23 Reported Medications Prazosin HCl (Prazosin HCl) 2 Mg Capsule, 1 CAP PO HS 07/26/24 Ezetimibe (Ezetimibe) 10 Mg Tablet, 1 TAB PO HS 07/26/24 Apixaban (Eliquis) 5 Mg Tablet, 1 TAB PO BID 07/26/24 Paliperidone Palmitate (Invega Trinza) 819 Mg/2.63 Ml Syringe, 819 MG IM Q3MTH, SYRINGE 02/25/23 Tamsulosin HCl (Flomax) 0.4 Mg Cap.er.24h, 0.4 MG PO DAILY, CAPSULE.DR 02/25/23 Lamotrigine (Lamotrigine) 300 Mg Tab.er.24, 300 MG PO DAILY 02/25/23 Carbidopa/Levodopa/Entacapone (Stalevo 150) 1 Tab Tab, 2 TAB PO DAILY, TAB 02/25/23 Atorvastatin Calcium (LIPITOR) 40 Mg Tablet, 40 MG PO HS, TAB 02/25/23 Amlodipine Besylate (Norvasc) 10 Mg Tablet, 10 MG PO DAILY, TAB 02/25/23 Lisinopril (Lisinopril) 40 Mg Tablet, 40 MG PO DAILY, TAB 02/25/23 Clopidogrel Bisulfate (Plavix) 75 Mg Tablet, 75 MG PO DAILY, TAB 02/25/23 Carvedilol (Coreg) 12.5 Mg Tablet, 12.5 MG PO BID, TAB 02/25/23 Buspirone HCl (Buspar) 15 Mg Tab, 15 MG PO BID, TAB 02/25/23 Aspirin (ASPIRIN 81 MG ECTAB) 81 Mg Ectab, 81 MG PO DAILY, TAB.EC 02/25/23 Chlorthalidone (Chlorthalidone) 25 Mg Tablet, 25 MG PO DAILY, TAB 02/25/23 Past Medical History Past Medical History: A-Fib, Anxiety, Bipolar, CAD, Diverticulosis, High Cholesterol, Heart Disease, Hypertension, Schizophrenia, Other Medical History Other: HX OF PARKINSON'S, DOUBLE BYPASS Past Surgical History: CABG, Other Surgical History Other: CARDIAC STENT; STENT TO BRAIN; Family History Family History: Negative Social History Social History: Smokers, Lives alone ROS Dictation CONSTITUTIONAL: Negative except for HPI HEAD/FACE: Negative except for HPI EENT: Negative except for HPI RESPIRATORY: Negative except for HPI GASTROINTESTINAL/ABDOMINAL: Negative except for HPI GENITOURINARY: Negative except for HPI MUSCULOSKELETAL: Negative except for HPI INTEGUMENTARY: Negative except for HPI NEUROLOGICAL/PSYCH: Negative except for HPI HEMATOLOGIC/LYMPHATIC: Negative except for HPI All Systems Negative, Except as noted above. 13 point review of systems assessed and all negative except for above. Physical Exam Physical Exam Dictation Vital Signs reviewed General Appearance: Alert, oriented x 3, no acute distress, well developed, nourished. Head and Face: non-traumatic. Eyes: PERRL, pink conjunctivas, eyelid no trauma, anterior chamber with arcus senilis. Ears: Pinnas intact and no signs of trauma or erythema ear canals clear and no discharge TM no erythema Nose: No discharge, no bleeding. Oropharynx: Mouth normal, tongue pink, pharynx clear,no erythema, tonsils no exudates, no abscesses noted, mucous membrane moist Neck: Supple, non-tender, no thyromegaly, no masses, no JVD, no bruits Breast:Deferred Chest:No tenderness, no crepitus, no paradoxical movement, no retractions Lungs:Clear, well-ventilated, symmetric, no rales, no wheezing, no rhonchi, no stridor, good breath sounds bilaterally Heart: Regular rate, regular rhythm, no murmur, no gallops Vascular: no peripheral edema, Abdomen: Soft, positive bowel sounds, nondistended, no guarding, nontender, no rebound, no masses no hepatomegaly, no splenomegaly, no Wolfe's sign, periumbilical hernia Rectal: Deferred Genital: Deferred Neurological: Normal speech, motor function intact, sensory function intact Musculoskeletal: Neck nontender, full range of motion, back nontender, full range of motion, Extremities: nontender, full range of motion Skin: Color pink, dry, no turgor, no rash, no lacerations, no abrasions, no contusions. Lymphatic: Deferred Results Laboratory and Microbiology Lab and Micro Result Laboratory Tests Test 06/23/25 15:50 White Blood Count 9.9 K/uL (4.8-10.8) Red Blood Count 4.39 MIL/uL (4.50-6.20) L Hemoglobin 13.4 g/dL (14.0-18.0) L Hematocrit 39.1 % (42-54) L Mean Corpuscular Volume 89.1 fL (79-99) Mean Corpuscular Hemoglobin 30.5 pg (27.0-33.0) Mean Corpuscular Hemoglobin Concent 34.3 g/dL (32.0-36.0) Red Cell Distribution Width 12.7 % (11.0-15.5) Platelet Count 184 K/uL (130-400) Mean Platelet Volume 9.6 fL (7.5-10.5) Immature Granulocyte % (Auto) 0.4 % (0-1) Neutrophils (%) (Auto) 64.5 % (40.0-77.0) Lymphocytes (%) (Auto) 14.3 % (21.0-51.0) L Monocytes (%) (Auto) 12.1 % (3.0-13.0) Eosinophils (%) (Auto) 8.0 % (0.0-8.0) Basophils (%) (Auto) 0.7 % (0.0-5.0) Neutrophils # (Auto) 6.4 K/uL (1.8-7.7) Lymphocytes # (Auto) 1.4 K/uL (1.0-4.8) Monocytes # (Auto) 1.2 K/uL (0.1-1.0) H Eosinophils # (Auto) 0.79 K/uL (0.00-0.70) H Basophils # (Auto) 0.07 K/uL (0.00-0.20) Absolute Immature Granulocyte (auto 0.04 K/uL (0-1) Nucleated Red Blood Cells 0.0 % (0.0-0.19) Sodium Level 140 mmol/L (136-145) Potassium Level 3.9 mmol/L (3.5-5.1) Chloride Level 102 mmol/L (101-111) Carbon Dioxide Level 33 mmol/L (21-32) H Blood Urea Nitrogen 19 mg/dL (7-18) H Creatinine 1.4 mg/dL (0.5-1.3) H Glomerular Filtration Rate Calc 54 mL/min (>90) Random Glucose 99 mg/dL (70-105) Lactic Acid Level 1.4 mmol/L (0.8-2.5) Total Calcium 9.8 mg/dL (8.5-10.1) Labs Reviewed?: Yes MDM MDM: Differential diagnosis: Incarcerated hernia, bowel obstruction, umbilical hernia There are no social concerns with this patient. Prescription drug management Prescriptions will include: None Medical management and examination interpretation discussions were had by me with other qualified healthcare professionals as indicated for the patient's care. ED Course Orders Procedure Category Date Status Time Cbc With Differential LAB 06/23/25 Complete 15:45 Basic Metabolic Panel LAB 06/23/25 Complete 15:45 Lactic Acid LAB 06/23/25 Complete 15:45 Ct Abdomen/Pelvis CT 06/23/25 Resulted W/Contrast 15:45 0.9%Nacl 1000ml (Ns PHA 06/23/25 Complete 1000ml) 16:30 Iohexol (Omnipaque) PHA 06/23/25 Complete 17:44 Current Medications Medications (Trade) Dose Ordered Sig/Edward Route PRN Reason Start Time Stop Time Status Last Admin Dose Admin Iohexol (Omnipaque) 75 ml STK-MED ONCE IV 06/23/25 17:44 06/23/25 17:45 DC Sodium Chloride 1,000 ml @ 0 mls/hr ONCE ONCE IV 06/23/25 16:30 06/23/25 16:31 DC 06/23/25 17:02 Vital Signs Date Time Temp Pulse Resp B/P (MAP) Pulse Ox O2 Delivery O2 Flow Rate FiO2 06/23/25 19:00 98.1 65 18 150/90 99 Room Air* 0 21 06/23/25 15:41 98.4 66 16 155/95 99 [place] [address] IMAGING REPORT Signed PATIENT: YONG METCALF MR#: [id number] : 1955 SEX: M AGE: 70 LOCATION: [facility] ORDER 45 STATUS: REG ER REPORT#: [id number] SERVICE 44 REASON: periumbilical hernia w/tenderness r/o incarceration ORDERING PHYSICIAN: ROB PEÑA PROCEDURE: ABD PEL W - CT ABDOMEN/PELVIS W/CONTRAST EXAMINATION: CT Abdomen and Pelvis with intravenous contrast CLINICAL HISTORY: Periumbilical hernia with tenderness, to rule out incarceration. COMPARISON: CT abdomen dated 09/17/2024. TECHNIQUE: Axial CT of the abdomen and pelvis with intravenous contrast. Multiplanar reformations were generated and reviewed. CONTRAST: With intravenous contrast. FINDINGS LUNG BASES: Clear. No pleural effusions. LIVER: Unremarkable. GALLBLADDER AND BILE DUCTS: Unremarkable. PANCREAS: Unremarkable. SPLEEN: Unremarkable. ADRENAL GLANDS: Left adrenal gland contains a 1.6 x 1.5 cm nodule, likely an adenoma. Right adrenal gland is unremarkable. KIDNEYS, URETERS, AND BLADDER: Right kidney contains an 8 mm cortical cyst. No calculi or obstruction. Left kidney is unremarkable. Urinary bladder is unremarkable. STOMACH AND BOWEL: Scattered colonic diverticula are present. No diverticulitis. APPENDIX: No CT features of acute appendicitis. PERITONEUM: Umbilical hernia contains intra?abdominal fat with mild fatty stranding, suggesting ongoing inflammation. Bowel loop is not present within the hernia. Hernial neck measures 2.2 x1.5 cm. LYMPH NODES: No lymphadenopathy. REPRODUCTIVE: Unremarkable. VASCULATURE: Mild atheromatous calcification of the abdominal aorta is present. BONES: Mild spondylotic changes are noted. IMPRESSION Umbilical hernia containing intra?abdominal fat with mild fatty stranding, indicating ongoing inflammation; bowel loops not present within the hernia, and the hernia neck measures 2.2 x 1.5 cm. Incidentally noted left adrenal gland nodule, likely an adenoma, right renal cortical cyst, and mild colonic diverticulosis without diverticulitis. /[place] DICTATED BY: ANABELL GILES Jr., MD DATE: 06/23/252013 ELECTRONICALLY SIGNED BY: ANABELL GILES Jr., MD DATE: 06/23/252013 DX & DISP Disposition: Discharge Departure Impression: Primary Impression: Umbilical hernia Condition: Stable Additional Instructions: Your CT scan shows an umbilical hernia containing abdominal fat mild inflammation which is what is causing your pain. There is no bowel loops present with a in the hernia. There was no evidence of incarceration or obstruction at this time. You will need to follow up with the general surgeon outpatient for further evaluation. Referrals: DEBO TRAORE MD (PCP) AMANUEL AREVALO MD Time of Disposition: 19:54 I have reviewed the case, and I agree with, Diagnosis and Plan I performed the substantive portion of the visit. I have reviewed and personally made and approve the management plan that is documented in the note by myself or the MARTINEZ. I acknowledge for responsibility for the patient's management plan. ROB PEÑA Jun 23, 2025 19:45
[2025-06-23 20:25] VITALS: BP 160/74; PULSE 59; RESP 18; TEMP 98.1; O2SAT 95
== END 2025-06-23 20:27 | disposition home or self-care (01) ==
LOC: EDH 15:40
DX: K42.9 Umbilical hernia without obstruction or gangrene (principal); E78.00 Pure hypercholesterolemia, unspecified; I11.9 Hypertensive heart disease without heart failure; I25.10 Atherosclerotic heart disease of native coronary artery without angina pectoris; F20.9 Schizophrenia, unspecified; F31.9 Bipolar disorder, unspecified; F41.9 Anxiety disorder, unspecified; F17.200 Nicotine dependence, unspecified, uncomplicated; Z79.01 Long term (current) use of anticoagulants; Z79.02 Long term (current) use of antithrombotics/antiplatelets; Z79.1 Long term (current) use of non-steroidal anti-inflammatories (NSAID); Z79.82 Long term (current) use of aspirin; Z79.899 Other long term (current) drug therapy; Z95.1 Presence of aortocoronary bypass graft; Z95.5 Presence of coronary angioplasty implant and graft
CPT/HCPCS: 99285; 74177; 96374; 96361; 96375; 80048; 85025; 83605; 36415; J2270; J7030; J2405; Q9967